=== PATIENT | female | born 1950 | race Caucasian/White ===

== ENCOUNTER 2020-06-24 14:42 | Outpatient (CLI) | payer MEDICARE, OTHER, SELFPAY ==
--- NOTE | ~2020-06-24 | MM_ITS ---
EXAMINATION: MM screening regla BI w man HISTORY: Screening mammogram TECHNIQUE: Craniocaudal and mediolateral oblique 3-D tomosynthesis images were obtained and synthetic 2-D images were generated. CAD analysis was submitted and interpreted. COMPARISON: 10/04/2017, 08/09/2015, 07/22/2012 bilateral digital screening mammogram examinations BREAST PARENCHYMAL COMPOSITION: There are scattered areas of fibroglandular density. FINDINGS: There is no evidence of suspicious mass, calcification, or architectural distortion to sugg est malignancy in either breast. There has been no suspicious interval change. IMPRESSION: 1. No mammographic evidence of malignancy. 2. Recommend routine screening mammography in one year. BI-RADS Category 1: Negative Reviewed, dictated and finalized at location A.
== END 2020-06-24 14:43 | disposition home or self-care (01) ==
LOC: ANHIMG 14:46
PROVIDERS: PCP Physician Assistant; Visit Provider Physician Assistant
DX: Z12.31 Encounter for screening mammogram for malignant neoplasm of breast (principal)
CPT/HCPCS: 77063; 77067

== ENCOUNTER → 2021-02-24 10:36 | Outpatient (CLI) | payer MEDICARE, OTHER, SELFPAY ==
[2021-02-24 19:11] LABS: SARS-CoV-2 RNA PCR Positive
== END ==
PROVIDERS: PCP Physician Assistant; Visit Provider Physician Assistant
DX: U07.1 COVID-19 (principal)
CPT/HCPCS: C9803; U0003; U0005

== ENCOUNTER 2021-11-13 07:49 | Outpatient (CLI) | payer MEDICARE, OTHER, SELFPAY ==
--- NOTE | ~2021-11-13 | MM_ITS ---
EXAMINATION: MM screening regla BI w man HISTORY: Screening TECHNIQUE: Craniocaudal and mediolateral oblique 3-D tomosynthesis images were obtained and synthetic 2-D images were generated. CAD analysis was submitted and interpreted. COMPARISON: Comparison to multiple prior studies sequentially, with oldest reviewed study dated 08/08. BREAST PARENCHYMAL COMPOSITION: There are scattered areas of fibroglandular density. FINDINGS: There is no evidence of suspicious mass, calcification, or architectural distortion to sugg est malignancy in either breast. There has been no suspicious interval change. IMPRESSION: 1. No mammographic evidence of malignancy. 2. Recommend routine screening mammography in one year. BI-RADS Category 1: Negative Reviewed, dictated and finalized at location A.
== END 2021-11-13 07:50 | disposition home or self-care (01) ==
PROVIDERS: PCP Physician Assistant; Visit Provider Physician Assistant
DX: Z12.31 Encounter for screening mammogram for malignant neoplasm of breast (principal)
CPT/HCPCS: 77063; 77067

== ENCOUNTER → 2022-01-07 14:22 | Outpatient (CLI) | payer MEDICARE, OTHER, SELFPAY ==
--- NOTE | ~2022-01-07 | DEXA_ITS ---
Bone Density Report Name: YENNY GRANT Age: 71 Sex: Female Ethnicity: White Date of : 1950 Indication: postmenopausal; screening for osteoporosis; height loss; Referring Provider: CANDIDO, CHELO Study: Bone densitometry was performed. Exam Date: January 07, 2022 Accession number: [id number] Bone Density: Region BMD T-score Z-score Classification AP Spine (L1, L3, L4) 1.119 0.6 2.7 Normal Femoral Neck (Left) 0.949 0.9 2.7 Normal Total Hip (Left) 1.251 2.5 4.0 Normal Femoral Neck (Right) 0.985 1.2 3.0 Normal Total Hip (Right) 1.211 2.2 3.7 Normal Total Hip Mean 1.231 2.4 3.9 Normal World Health Organization criteria for BMD impression classify patients as: Normal (T-score at or above -1.0), Osteopenia (T-score between -1.0 and -2.5), or Osteoporosis (T-score at or below -2.5). 10-year Fracture Risk: FRAX not reported because: All T-scores for Spine Total, Hip Total, Femoral Neck at or above -1.0 Previous Exams: Region Exam Age BMD T-score BMD Change BMD Change Date g/cm2 vs Baseline vs Previous AP Spine(L1, L3, L4) 01/07/2022 71 1.119 0.6 0.003 0.003 05/12/2016 65 1.116 0.6 Total Hip(Left) 01/07/2022 71 1.251 2.5 -0.032* -0.032* 05/12/2016 65 1.283 2.8 Total Hip(Right) 01/07/2022 71 1.211 2.2 -0.034* -0.034* 05/12/2016 65 1.245 2.5 *Denotes significance at 95% confidence level, LSC for AP Spine = 0.022 g/cm2, LSC for Total Hip = 0.027 g/cm2 Clinical Information Provided by Patient: Has used the following medications: Vitamin D, MULT VIT Patient maximum height was 67 Menopause Age: 59 No regular weight bearing exercise Drinks caffeinated beverages Onset of menses at age 15 Number of children 2 Impression: The patient has normal bone mass. The BMD for the Total Hip(Left) decreased, changing by -0.032 since the last DXA exam. The BMD for the Total Hip(Right) decreased, changing by -0.034 since the last DXA exam. Discussion: LOW RISK OF FRACTURE; BONE DENSITY IS WELL ABOVE THE MINIMUM DESIRABLE LEVEL AND ABOVE AVERAGE FOR AGE AND SEX AT ALL SKELETAL SITES TESTED. This person's bone density is above expected limits for age and sex. This is rarely clinically significant, but should be pursued if there are significant musculoskeletal complaints. The patient should follow a healthful lifestyle (good nutrition with adequate calcium and vitamin D, and appropriat
== END ==
PROVIDERS: PCP Physician Assistant; Visit Provider Physician Assistant
DX: Z78.0 Asymptomatic menopausal state (principal)
CPT/HCPCS: 77080

== ENCOUNTER 2022-06-06 14:30 | Emergency (ER) | payer OTHER, SELFPAY ==
--- NOTE | ~2022-06-06 | XR_ITS ---
EXAM: XR ankle RT min 3V, XR ankle LT min 3V DATE: 06/06/2022 17:14 HISTORY: fall; fell off curb today;pain ant bilat knees, bilat ankles . COMPARISON: None available. FINDINGS: Normal mineralization. No fracture or dislocation. No lytic or blastic lesion. Mild scatte red degenerative change. Mild left and moderate right plantar enthesopathy. Minimal bilateral Pray s enthesopathy. No erosion or periosteal change. Soft tissues within normal limits. IMPRESSION: No acute osseous finding in the bilateral ankles. Reviewed, dictated and finalized at location K. IMPRESSION: No acute osseous finding in the bilateral ankles.
--- NOTE | ~2022-06-06 | XR_ITS ---
EXAM: XR knee RT 3V, XR knee LT 3V DATE: 06/06/2022 17:15 HISTORY: fall; fell off curb today;pain ant bilat knees, bilat ankles . COMPARISON: None available. FINDINGS: Normal mineralization. No fracture or dislocation. No lytic or blastic lesion. Mild bilate ral knee osteoarthritis. Degenerative subchondral cysts in the right patella. Right quadriceps enthes opathy. Left patellar enthesopathy. No erosion or periosteal change. Soft tissues within normal limit s. IMPRESSION: No acute osseous finding in the bilateral knees. Reviewed, dictated and finalized at location K. IMPRESSION: No acute osseous finding in the bilateral knees.
[2022-06-06 14:33] VITALS: BP 168/68; PULSE 69; RESP 16; TEMP 36.6; O2SAT 100
--- NOTE | 2022-06-06 16:31 | ED.FALL ---
HPI - Fall General Chief Complaint: Fall Stated Complaint: fall- B knee, L ankle, B hand pain Time Seen by Provider: 06/06/22 15:58 History of Present Illness HPI Narrative: Patient is a 71-year-old female presenting after a fall. Patient states that she was at [employer] when she tripped on a pile of dried mud and dirt. She fell to her hands and knees. States that she landed very hard on her knees. States that she has bilateral knee pain, worse on the right. States that she did not try to bear weight after falling. She also complains of bilateral ankle pain. States that she had some pain in her palms but this has improved. She did not strike her head or lose consciousness. No neck or back pain. Denies further injuries or complaints. Related Data Allergies Allergy/AdvReac Type Severity Reaction Status Date / Time No Known Allergies Allergy Verified 06/06/22 16:39 Review of Systems Review of Systems: All systems reviewed & are unremarkable except as noted in HPI and below PMFSH Family History Family History Other Diabetes mellitus Family history of cardiovascular disease Family history of congestive heart failure Family history of glaucoma Family history of malignant neoplasm of breast Family history of obesity Social History Social History Smoking status: Never smoker Alcohol intake: current Exam Narrative: GENERAL: Well-appearing, well-nourished, and in no acute distress. HEAD: Normocephalic, atraumatic. EYES: PERRLA and EOMI. ENT: Nares clear, no rhinorrhea or epistaxis. Mucous membranes moist. NECK: Supple. CHEST: No respiratory distress. HEART: Regular rate and rhythm. Normal peripheral pulses. ABDOMEN: Soft, nontender, nondistended EXTREMITIES: Normal range of motion of bilateral ankles and knees, tenderness over anterior right knee SKIN: Warm, dry, abrasion over right knee, ecchymosis distal right calf NEURO: No focal deficits. Alert and oriented x3. PSYCH: Normal mood and affect. Course Vital Signs Vital signs: Vital Signs Temperature 97.9 F 06/06/22 14:33 Pulse Rate 69 06/06/22 14:33 Respiratory Rate 16 06/06/22 14:33 Blood Pressure 168/68 H 06/06/22 14:33 Pulse Oximetry 100 06/06/22 14:33 Oxygen Delivery Room Air 06/06/22 14:33 Temperature 97.9 F 06/06/22 14:33 Pulse Rate 65 06/06/22 19:17 Respiratory Rate 16 06/06/22 19:17 Blood Pressure 159/82 H 06/06/22 19:17 Pulse Oximetry 100 06/06/22 19:17 Oxygen Delivery Room Air 06/06/22 14:33 MDM - Fall MDM Narrative Medical decision making narrative: 71-year-old female presenting with bilateral knee and ankle pain following a mechanical fall. Vitals within normal limits. Exam remarkable for the above. Plan for plain films and oral Tylenol. X-rays show no acute osseous abnormalities. Discussed the reassuring work-up with the patient. Advised Tylenol and ice for pain control. Advised PCP follow-up. Appropriate return precautions given. Patient voiced understanding and is agreeable with plan. Discharged in stable condition. Differential Diagnosis Differential diagnosis: Likely other (ankle fracture, knee dislocation, tibial fracture, femur fracture, abrasions, fall) Critical Care Time Critical Care Time Critical Care Time: No Discharge Plan Discharge Clinical Impression: Fall, Abrasion Patient Disposition: Home, Self-Care Condition: Stable Instructions: Antibiotic Form, Fall Prevention for Older Adults (ED), Abrasion (ED) Additional Instructions: Your x-rays show no fractures. Please use Tylenol and ibuprofen for pain control. Please follow-up with your primary care provider. If your pain suddenly worsens, you develop fevers, numbness or weakness, or other concerning symptoms arise, please return to the ER. Follow-up/Referrals: Jane,SYLVAIN Escobedo-
[2022-06-06] MEDS: ACETAMINOPHEN 500 MG TABLET 1000 MG PO (16:39)
[2022-06-06] MEDS: Please add drug allergy info to patient profile. XX (16:40)
[2022-06-06 19:17] VITALS: BP 159/82; PULSE 65; RESP 16; O2SAT 100
== END 2022-06-06 19:19 | disposition home or self-care (01) ==
PROVIDERS: Emergency Provider Emergency Medicine; PCP Physician Assistant
DX: S80.211A Abrasion, right knee, initial encounter (principal); M25.562 Pain in left knee; M25.572 Pain in left ankle and joints of left foot; M25.571 Pain in right ankle and joints of right foot; W01.0XXA Fall on same level from slipping, tripping and stumbling without subsequent striking against object, initial encounter
CPT/HCPCS: 73562; 73610; 99284; A9270

== ENCOUNTER → 2022-06-10 12:03 | Outpatient (CLI) | payer MEDICARE, OTHER, SELFPAY ==
--- NOTE | ~2022-06-10 | XR_ITS ---
XR tibia fibula RT 2V DATE: 06/10/2022 12:21 INDICATION: Fall 4 days ago. Anterior distal lower leg pain TECHNIQUE: AP and lateral views COMPARISON: None FINDINGS: No fracture or dislocation, periosteal reaction or bone destruction. Normal alignment at th e knee and ankle joints. IMPRESSION: No fracture or dislocation Reviewed, dictated and finalized at location B. IMPRESSION: No fracture or dislocation
--- NOTE | ~2022-06-10 | XR_ITS ---
XR shoulder RT min 2V DATE: 06/10/2022 12:21 INDICATION: Fall 4 days ago. Right shoulder pain. TECHNIQUE: 4 views COMPARISON: None FINDINGS: No fracture or dislocation, periosteal reaction or bone destruction or abnormal soft tissue calcification. IMPRESSION: Negative Reviewed, dictated and finalized at location B. IMPRESSION: Negative
== END ==
PROVIDERS: PCP Physician Assistant; Visit Provider Physician Assistant
DX: M79.604 Pain in right leg (principal); M25.511 Pain in right shoulder
CPT/HCPCS: 73030; 73590

== ENCOUNTER 2022-06-15 11:15 | Outpatient (CLI) | payer MEDICARE, OTHER, SELFPAY ==
--- NOTE | ~2022-06-15 | US_ITS ---
US venous doppler LE RT DATE: 06/15/2022 11:46 INDICATION: Swelling of right lower extremity TECHNIQUE: Real-time and color flow imaging and Doppler analysis of the veins of the right lower extr emity COMPARISON: None FINDINGS: The right greater saphenous vein is patent. There is spontaneous and phasic flow and normal augmentation and color flow signal and normal compression of the deep veins of the right lower extre mity. Probable hematoma in the anterior lower leg IMPRESSION: No evidence of deep venous thrombosis of right lower extremity Reviewed, dictated and finalized at Location A. Reviewed, dictated and finalized at location B.
== END 2022-06-15 11:16 | disposition home or self-care (01) ==
LOC: ANHIMG 11:17
PROVIDERS: PCP Physician Assistant; Visit Provider Physician Assistant
DX: R22.41 Localized swelling, mass and lump, right lower limb (principal)
CPT/HCPCS: 93971

== ENCOUNTER 2023-10-27 15:49 | Outpatient (CLI) | payer MEDICARE, OTHER, SELFPAY ==
--- NOTE | ~2023-10-27 | MM_ITS ---
EXAMINATION: MM screening regla BI w man HISTORY: Screening TECHNIQUE: Craniocaudal and mediolateral oblique 3-D tomosynthesis images were obtained and synthetic 2-D images were generated. CAD analysis was submitted and interpreted. COMPARISON: Comparison to multiple prior studies sequentially, with oldest reviewed study dated 08/08. BREAST PARENCHYMAL COMPOSITION: Not dense: There are scattered areas of fibroglandular density. FINDINGS: There is no evidence of suspicious mass, calcification, or architectural distortion to sugg est malignancy in either breast. There has been no suspicious interval change. IMPRESSION: 1. No mammographic evidence of malignancy. 2. Recommend routine screening mammography in one year. BI-RADS Category 1: Negative Reviewed, dictated and finalized at location B.
== END 2023-10-27 15:50 | disposition home or self-care (01) ==
PROVIDERS: PCP Physician Assistant; Visit Provider Physician Assistant
DX: Z12.31 Encounter for screening mammogram for malignant neoplasm of breast (principal)
CPT/HCPCS: 77063; 77067

== ENCOUNTER 2024-06-22 11:21 | Outpatient (CLI) | payer MEDICARE, OTHER, SELFPAY ==
--- NOTE | ~2024-06-22 | CT_ITS ---
Non-contrast CT scan of the Abdomen Clinical indication: Disorder adrenal gland Technique: 2.5 mm axial scans were obtained through the abdomen without intravenous or oral contrast . Dose reduction technique was used on this scan by utilizing automated exposure control and iterativ e reconstruction technique. The dose-length product (DLP) was 684.56 mGy-cm. Findings: Images through the lung bases reveal small hiatal hernia. There is no evidence of renal or ureteral calculi. The kidneys and the ureters are nondilated. Parape lvic left renal cysts are present. The liver, spleen, pancreas, gallbladder, and right adrenal gland appear normal. 1.7 cm low-density l eft adrenal nodule is compatible with adenoma. There is no aortic aneurysm. Visualized bowel loops are unremarkable.. No ascites. Bilateral L5 pars interarticularis defects are noted. Impression: 1.7 cm left adrenal adenoma. Small hiatal hernia. Reviewed, dictated and finalized at [facility]. Impression: 1.7 cm left adrenal adenoma. Small hiatal hernia.
== END 2024-06-22 11:22 | disposition home or self-care (01) ==
LOC: MICIMG 11:22
PROVIDERS: PCP Physician Assistant; Visit Provider Internal Medicine Endocrinology, Diabetes & Metabolism
DX: D35.02 Benign neoplasm of left adrenal gland (principal); K44.9 Diaphragmatic hernia without obstruction or gangrene
CPT/HCPCS: 74150

== ENCOUNTER 2024-09-05 11:03 | Outpatient (CLI) | payer MEDICARE, OTHER, SELFPAY ==
--- NOTE | ~2024-09-05 | DEXA_ITS ---
Bone Density Report Name: YENNY GRANT Age: 73 Sex: Female Ethnicity: White Date of : 1950 Indication: postmenopausal; screening for osteoporosis; height loss; Referring Provider: CANDIDO, CHELO Study: Bone densitometry was performed. Exam Date: September 05, 2024 Accession number: [id number] Bone Density: Region BMD T-score Z-score Classification AP Spine(L1, L3, L4) 1.088 0.3 2.6 Normal Femoral Neck (Left) 0.906 0.5 2.4 Normal Total Hip (Left) 1.166 1.8 3.4 Normal Femoral Neck (Right) 0.911 0.6 2.5 Normal Total Hip (Right) 1.180 1.9 3.6 Normal Total Hip Mean 1.173 1.9 3.5 Normal World Health Organization criteria for BMD impression classify patients as: Normal (T-score at or above -1.0), Osteopenia (T-score between -1.0 and -2.5), or Osteoporosis (T-score at or below -2.5). 10-year Fracture Risk: FRAX not reported because: All T-scores for Spine Total, Hip Total, Femoral Neck at or above -1.0 Previous Exams: -- Region Exam Age BMD T-score BMD Change BMD Change Date g/cm2 vs Baseline vs Previous -- AP Spine (L1,L3-L4) 09/05/2024 73 1.088 0.3 -2.5%# -2.8%# 01/07/2022 71 1.119 0.6 0.3% 0.3% 05/12/2016 65 1.116 0.6 Total Hip(Left) 09/05/2024 73 1.166 1.8 -9.1%# -6.8%# 01/07/2022 71 1.251 2.5 -2.5%* -2.5%* 05/12/2016 65 1.283 2.8 Total Hip(Right) 09/05/2024 73 1.180 1.9 -5.3%# -2.6%# 01/07/2022 71 1.211 2.2 -2.8%* -2.8%* 05/12/2016 65 1.245 2.5 -- *Denotes significance at 95% confidence level, LSC for AP Spine = 0.022 g/cm2, LSC for Total Hip = 0.027 g/cm2 # Denotes dissimilar scan types or analysis methods Clinical Information Provided by Patient: Has used the following medications: Vitamin D, Calcium Patient maximum height was 67 Menopause Age: 59 No regular weight bearing exercise Drinks caffeinated beverages Onset of menses at age 14 Number of children 2 Impression: The patient has normal bone mass. Unable to evaluate interval change due to the use of different scan modes. Discussion: LOW RISK OF FRACTURE; BONE DENSITY IS WELL ABOVE THE MINIMUM DESIRABLE LEVEL AND ABOVE AVERAGE FOR AGE AND SEX AT ALL SKELETAL SITES TESTED. This person's bone density is above expected limits for age and sex. This is rarely clinically significant, but should be pursued if there are significant musculoskeletal complaints. The patient should follow a healthful lifestyle (good nutrition with adequate calcium and vitamin D, and appropriate weight-bearing exercise). Follow-Up: Consider repeating this study in 5 years or sooner if there is some new clinical indication. Reported by: TERI on 09/05/2024 11:30:00 AM. Reviewed, dictated and finalized at location A.
== END 2024-09-05 11:04 | disposition home or self-care (01) ==
LOC: MICIMG 11:05
PROVIDERS: PCP Physician Assistant; Visit Provider Physician Assistant
DX: Z13.820 Encounter for screening for osteoporosis (principal); Z78.0 Asymptomatic menopausal state
CPT/HCPCS: 77080

== ENCOUNTER 2025-01-24 13:04 | Outpatient (CLI) | payer MEDICARE, OTHER, SELFPAY ==
--- OUTSIDE RECORDS SUMMARY | 2024-02-05 15:00 | XMS_ITS ---
Author Organization [facility] Address [address] [place] [address] Care Team Providers Care Mink Rancher Name Role Phone Ericka Levi Unavailable [phone] Migration, Provider Unavailable Unavailable Allergies Allergen (clinical drug ingredient) Drug/Non Drug Allergy documented on EMR Reaction Allergy Type Onset Date Status metformin metFORMIN Unknown Drug Allergy Active REASON FOR VISIT [facility] Conversion Encounter Medications Medication SIG (Take, Route, Frequency, Duration) Notes Start Date End Date Status dexAMETHasone 1 MG 1 tab(s) orally at 1 0 pm night before 8 am cortisol; Duration: 1 days 12/13/2023 Active Zepbound 5 MG/0.5ML inject 5 mg subcutaneously once a week; Duration: 12/13/2023 Active Zepbound 2.5 MG/0.5ML inject 2.5 mg subcutaneously once a week; Duration: 30 days 12/13/2023 Active Liothyronine Sodium 5 MCG 1 tab(s) orally once a day around noon; Duration: days 12/13/2023 Active Losartan Potassium 25 MG 1 tab(s) orally once a day; Duration: 90 days 11/01/2023 Not-Janes g Losartan Potassium 25 MG 1 tab(s) orally once a day Active Liothyronine Sodium 5 MCG 1 tab(s) orally once a day around noon; Duration: 30 12/14/2023 Active Mounjaro 2.5 MG/0.5ML inject 2.5 mg subcutaneously once a week; Duration: days 11/01/2023 Active Levothyroxine Sodium 75 MCG 1 tab(s) orally once a day Active Lexapro 10 MG 1 tab(s) orally once a day Active Encounters Encounter Location Date Provider Diagnosis [facility] [place] [address] [place] [phone] 02/05/2024 Provider Migration Hypothyroidism, unspecified E03.9 and Obesity, unspecified E66.9 Assessments Encounter Date Diagnosis (ICD Code) Assessment Notes Treatment Notes Treatment Clinical Notes Section Notes 02/05/2024 Hypothyroidism, unspecified (ICD-10 - E03.9) 02/05/2024 Obesity, unspecified (ICD-10 - E66.9) Plan Of Treatment Medication Medication Name Sig Start Date Stop Date Notes dexAMETHasone 1 MG 1 tab(s) orally at 1 0 pm night before 8 am cortisol; Duration: 1 days 12/13/2023 Zepbound 5 MG/0.5ML inject 5 mg subcutan eously once a week; Duration: 90 days 12/13/2023 Zepbound 2.5 MG/0.5ML inject 2.5 mg subc utaneously once a week; Duration: 30 days 12/13/2023 Liothyronine Sodium 5 MCG 1 tab(s) orall y once a day around noon; Duration: 90 days 12/13/2023 Liothyronine Sodium 5 MCG 1 tab(s) orall y once a day around noon; Duration: 30 days 12/14/2023 Progress Notes * Pino GRANTOB:1950 (74 yo F)Acc No.[id number]:02/05/2024 Patient: Michell CARDENAS Provider: Osmin ibarra Migration :1950 A ge:73 Y S ex:Female Date:02/05/2024 Address:[address] [place] [address] Subjective: * Chief Complaints: * 1 . Multum To Medispan Conversion Encounter. * Medical History: * Medications: T aking Losartan Potassium 25 MG Tablet 1 tab(s) orally once a day , Taking Lexapro(Escitalopram Oxalate) 10 MG Tablet 1 tab(s) orally once a day , Taking Levothyroxine Sodium 75 MCG Tablet 1 tab(s) orally once a day , Taking Mounjaro(Tirzepatide) 2.5 MG/0.5ML Solution Auto-injector inject 2.5 mg subcutaneously once a week , Not-Taking/PRN Losartan Potassium 25 MG Tablet 1 tab(s) orally once a day * Allergies: m etFORMIN. Objective: * Vitals: Assessment: * Assessment: 1. H ypothyroidism, unspecified - E03.9 (Primary) 2 . O besity, unspecified - E66.9 Plan: * Treatment: 2. O besity, unspecified Start Zepbound Solution, 2.5 MG/0.5ML, inject 2.5 mg, subcutaneously, once a week, 30 days, 4, Refills 0; S tart Zepbound Solution, 5 MG/0.5ML, inject 5 mg, subcutaneously, once a week, 90 days, 12, Refills 1; S tart dexAMETHasone Tablet, 1 MG, 1 tab(s), orally, at 10 pm night before 8 am cortisol, 1 days, 1, Refills 1. * Billing Information: * Visit Code: * Procedure Codes: * Electronic signature of Prov saundrar Migration on 01/25/2025 at 11:39 AM WALLPAPER HANGER Sign off status: Pending * Provider: Osmin ibarra Migration Date: 04/06/2023 Generated for Landon nieves/Rashida/Angelitting on: 03/27/2024 11:39 AM WALLPAPER HANGER
--- OUTSIDE RECORDS SUMMARY | 2024-02-05 15:00 | XMS_ITS ---
Author Organization [facility] Address [address] [place], [place] [address] Care Team Providers Care Script Developer Name Role Phone Ericka Levi Unavailable [phone] Migration, Provider Unavailable Unavailable Allergies Allergen (clinical drug ingredient) Drug/Non Drug Allergy documented on EMR Reaction Allergy Type Onset Date Status metformin metFORMIN Unknown Drug Allergy [facility] Conversion Encounter Medications Medication SIG (Take, Route, Frequency, Duration) Notes Start Date End Date Status Mounjaro 2.5 MG/0.5ML Solution Auto-injector inject 2.5 mg subcutaneously once a week; Duration: 90 days 11/01/2023 Active Levothyroxine Sodium 75 MCG Tablet 1 tab(s) orally once a day Active Losartan Potassium 25 MG Tablet 1 tab(s) orally once a day; Duration: 90 days 11/01/2023 Not-Janes g Lexapro 10 MG Tablet 1 tab(s) orally onc e a day Active Losartan Potassium 25 MG Tablet 1 tab(s) orally once a day Active Zepbound 5 MG/0.5ML Solution inject 5 mg subcutaneously once a week; Duration: 90 days 12/13/2023 Active Zepbound 2.5 MG/0.5ML Solution inject 2.5 mg subcutaneously once a week; Duration: 30 days 12/13/2023 Active Liothyronine Sodium 5 MCG Tablet 1 tab(s) orally once a day around noon; Duration: 30 days 12/14/2023 Active dexAMETHasone 1 MG Tablet 1 tab(s) orally at 10 pm night before 8 am cortisol; Duration: 1 days 12/13/2023 Active Liothyronine Sodium 5 MCG Tablet 1 tab(s) orally once a day around noon; Duration: 90 days 12/13/2023 Active Encounters Encounter Location Date Provider Diagnosis [address] [id number] 02/05/2024 Provider Migration Hypothyroidism, unspecified E03.9 and Obesity, unspecified E66.9 Assessments Encounter Date Diagnosis (ICD Code) Assessment Notes Treatment Notes Treatment Clinical Notes Section Notes 02/05/2024 Hypothyroidism, unspecified (ICD-10 - E03.9) 02/05/2024 Obesity, unspecified (ICD-10 - E66.9) Plan Of Treatment Medication Medication Name Sig Start Date Stop Date Notes Zepbound 5 MG/0.5ML Solution inject 5 mg subcutaneously once a week; Duration: 90 days 12/13/2023 Zepbound 2.5 MG/0.5ML Solution inject 2.5 mg subcutaneously once a week; Duration: 30 days 12/13/2023 Liothyronine Sodium 5 MCG Tablet 1 tab(s) orally once a day around noon; Duration: 30 days 12/14/2023 dexAMETHasone 1 MG Tablet 1 tab(s) orall y at 10 pm night before 8 am cortisol; Duration: 1 days 12/13/2023 Liothyronine Sodium 5 MCG Tablet 1 tab(s) orally once a day around noon; Duration: 90 days 12/13/2023 Next Appt Details Provider Name:Ericka Levi, 01:00:00 PM, [address] [place] [address], [phone], Progress Notes * Pino GRANTOB:1950 (74 yo F)Acc No.[id number]:02/05/2024 Patient: Michell Monge Provider: Osmin Velez :1950 A ge:73 Y S ex:Female Date:02/05/2024 Address:[address] [place] [id number] Subjective: * Chief Complaints: * M ultum To Medispan Conversion Encounter * Medications: T akingLosartan Potassium 25 MG Tablet 1 tab(s) orally once a day Lexapro 10 MG Tablet 1 tab(s) orally once a day Levothyroxine Sodium 75 MCG Tablet 1 tab(s) orally once a day Mounjaro 2.5 MG/0.5ML Solution Auto-injector inject 2.5 mg subcutaneously once a week Taking Losartan Potassium 25 MG Tablet 1 tab(s) orally once a day Taking Lexapro 10 MG Tablet 1 tab(s) orally once a day Taking Levothyroxine Sodium 75 MCG Tablet 1 tab(s) orally once a day Taking Mounjaro 2.5 MG/0.5ML Solution Auto-injector inject 2.5 mg subcutaneously once a week Not-TakingLosartan Potassium 25 MG Tablet 1 tab(s) orally once a day Not-Taking Losartan Potassium 25 MG Tablet 1 tab(s) orally once a day * Allergies: m etFORMIN Assessment: * Assessment: 1. H ypothyroidism, unspecified [...] cortisol, 1 days, 1, Refills 1. * Electronic signature of Prov ider Migration on 01/25/2025 at 11:38 AM FIELD TRAINING MANAGER Sign off status: Pending * Provider: Osmin ibarra Migration Date: 04/06/2023 Generated for Landon nieves/Rashida/Angelitting on: 03/27/2024 11:38 AM FIELD TRAINING MANAGER
--- OUTSIDE RECORDS SUMMARY | 2024-04-24 04:30 | XMS_ITS ---
Author Organization [facility] Address [address] [place], [place] [address] Care Team Providers Care Framing Mechanic Name Role Phone Ericka Levi [phone] REASON FOR VISIT 6 week f/u carisa Encounters Encounter Location Date Provider Diagnosis [facility] Dr. Levi [address] [place] [id number] 04/24/2024 Ericka Levi Plan Of Treatment Next Appt Details Provider Name:Ericka Levi, 01:00:00 PM, [address] [place] [address], [phone], Progress Notes * Pino GRANTOB:1950 (74 yo F)Acc No.[id number]:04/24/2024 Progress Notes Patient: Michell Monge Provider: Henry Levi MD :1950 A ge:73 Y S ex:Female Date:04/24/2024 Address:[address], [facility] Subjective: * Chief Complaints: * 6 week f/u carisa * Electronic signature of Sha Levi MD on 01/25/2025 at 11:39 AM MANAGER PORTABLE Sign off status: Pending * Provider: Henry Levi MD Date: 0 04/24/2024 Generated for Parasi ng/Faxing/eTransmitting on: 1 03/27/2024 11:39 AM MANAGER PORTABLE
--- OUTSIDE RECORDS SUMMARY | 2024-06-05 05:00 | XMS_ITS ---
Author Organization [employer] [facility] Address [address] [place] [address] Care Team Providers Care Carpet Renovator Name Role Phone Ericka Levi [phone] REASON FOR VISIT F/U RAUL Encounters Encounter Location Date Provider Diagnosis [facility] - Ericka Levi [address] [place] [address] 06/05/2024 Ericka Levi Plan Of Treatment No Information Progress Notes * Pino GRANTOB:1950 (74 yo F)Acc No.[id number]:06/05/2024 Progress Notes Patient: Michell CARDENAS Provider: Henry Levi MD :1950 A ge:73 Y S ex:Female Date:06/05/2024 Address:[address] [facility] Subjective: * Chief Complaints: * 1 . F/U RAUL. * Medical History: Objective: * Vitals: Assessment: Plan: * Treatment: * Billing Information: * Visit Code: * Procedure Codes: * Electronic signature of Sha Levi MD on 01/25/2025 at 11:38 AM PAYROLL CLERK Sign off status: Pending * Provider: Henry Levi MD Date: 0 06/05/2024 Generated for Parasi ng/Falaurag/eTransmitting on: 03/27/2024 11:38 AM PAYROLL CLERK
--- OUTSIDE RECORDS SUMMARY | 2024-06-05 05:00 | XMS_ITS ---
Author Organization [employer] [facility] Address [address] [place] [address] Care Team Providers Care Transportation Program Director Name Role Phone Ericka Levi [phone] REASON FOR VISIT F/U RAUL Encounters Encounter Location Date Provider Diagnosis [facility] - Ericka Levi [address] [place] [address] 06/05/2024 Ericka Levi Plan Of Treatment No Information Progress Notes * Pino GRANTOB:1950 (74 yo F)Acc No.[id number]:06/05/2024 Progress Notes Patient: Michell CARDENAS Provider: Henry Levi MD :1950 A ge:73 Y S ex:Female Date:06/05/2024 Address:[address] [facility] Subjective: * Chief Complaints: * 1 . F/U RAUL. * Medical History: Objective: * Vitals: Assessment: Plan: * Treatment: * Billing Information: * Visit Code: * Procedure Codes: * Electronic signature of Sha Levi MD on 01/25/2025 at 11:39 AM CREDIT REPORTING CLERK Sign off status: Pending * Provider: Henry Levi MD Date: 0 06/05/2024 Generated for Parasi ng/Falaurag/eTransmitting on: 03/27/2024 11:39 AM CREDIT REPORTING CLERK
--- OUTSIDE RECORDS SUMMARY | 2024-08-28 07:00 | XMS_ITS ---
Author Organization [facility] Address [address] [place], [place] [address] Care Team Providers Care Carpenter Maintenance Name Role Phone Ericka Levi [phone] REASON FOR VISIT 3 month f/u Encounters Encounter Location Date Provider Diagnosis AMMO Dr. Levi [address] [place] [phone] 08/28/2024 Ericka Levi Plan Of Treatment Next Appt Details Provider Name:Ericka Levi, 01:00:00 PM, [address] [place] [address], [phone], Progress Notes * Pino GRANTOB:1950 (74 yo F)Acc No.[id number]:08/28/2024 Progress Notes Patient: Michell Monge Provider: Henry Levi MD :1950 A ge:73 Y S ex:Female Date:08/28/2024 Address:[address], [facility] Subjective: * Chief Complaints: * 3 month f/u * Electronic signature of Sha Levi MD on 01/25/2025 at 11:38 AM INTERIOR DECORATOR PAPERHANGING Sign off status: Pending * Provider: Henry Levi MD Date: 08/28/2024 Generated for Parasi ng/Falaurag/eTransmitting on: 03/27/2024 11:38 AM INTERIOR DECORATOR PAPERHANGING
--- OUTSIDE RECORDS SUMMARY | 2025-01-10 06:20 | XMS_ITS ---
Author Organization [facility] Address [address] [place], [place] [address] Care Team Providers Care Field Crop Technical Officer Name Role Phone Ericka Levi [phone] REASON FOR VISIT Lab Follow up Encounters Encounter Location Date Provider Diagnosis AMMO Dr. Levi [address] [place] [phone] 01/10/2025 Ericka Levi Plan Of Treatment Next Appt Details Provider Name:Ericka Levi, 01:00:00 PM, [address] [place] [address], [phone], Progress Notes * Pino GRANTOB:1950 (74 yo F)Acc No.[id number]:01/10/2025 Progress Notes Patient: Michell Monge Provider: Henry Levi MD :1950 A ge:74 Y S ex:Female Date:01/10/2025 Address:[address], [facility] Subjective: * Chief Complaints: * L ab Follow up * Electronic signature of Sha Levi MD on 01/25/2025 at 11:39 AM HOME SERVICE TECHNICIAN Sign off status: Pending * Provider: Henry Levi MD Date: Generated for Landon ng/Fanaman/eTransmitting on: 03/27/2024 11:39 AM HOME SERVICE TECHNICIAN
--- NOTE | ~2025-01-24 | MM_ITS ---
EXAMINATION: MM screening regla BI w man HISTORY: Screening TECHNIQUE: Craniocaudal and mediolateral oblique 3-D tomosynthesis images were obtained and synthetic 2-D images were generated. CAD analysis was submitted and interpreted. COMPARISON: Comparison to multiple prior studies sequentially, with oldest reviewed study dated , 08/09/2015 BREAST PARENCHYMAL COMPOSITION: The breasts are almost entirely fatty. FINDINGS: There is no evidence of suspicious mass, calcification, or architectural distortion to suggest malignancy in either breast. IMPRESSION: 1. No mammographic evidence of malignancy. 2. Recommend routine screening mammography in one year. BI-RADS Category 1: Negative Reviewed, dictated and finalized at location A. AND EYE MACHINE OPERATOR
--- OUTSIDE RECORDS SUMMARY | 2025-01-25 11:39 | XMS_ITS | Encounter Summary ---
Author Organization [facility] Address [address] [place] [address] Care Team Providers Care Grazing Aide Name Role Phone Fanny Lara Primary Care Pr ovider Encounter Details Date Type Department Care Team (Late st Contact Info) Description 07/05/2023 Orders Only [facility] Senior Counseling [address] [place] [address] Kai Vogel MD [address] [address] Social History Tobacco Use Types Packs/Day Years Used Date Smoking Tobacco: Never Smokeless Tobacco: Never Alcohol Use Standard Drinks/Week Comments Yes 0 (1 standard drink = 0.6 oz pur e alcohol) Comments No Sex and Gender Information Value Date Recorded Sex Assigned at Not on file Legal Sex Female 11:10 AM FOREST FIRE PREVENTION SPECIALIST Gender Identity Female 07/20/2023 6:38 PM CDT Sexual Orientation Straight 07/26/2018 9: 47 AM CDT documented as of this encounter Plan of Treatment Not on file documented as of this encounter Visit Diagnoses Not on filedocumented in this encounter Additional Health Concerns Active Problems Noted Date Diagnosed Date 1. Family/Interpersonal Relationship Problems: 1 04/24/2023 Note: Problem Statement: Patient presents with anxiety symptoms and reports of relational conflict with family. For the last several years patient has been struggling to maintain relationship with her sister who has chronic severe mental and physical illness. Patient reports this relationship as a major stressor as her sister has no desire for mental health treatment and patient experiences frequent worry about her wellbeing. Patient also reports worrying that something similar will happen to her. Patient also reports worries about the wellbeing of her grandsons as their parents navigate a divorce, as well as worries about the possibility of conflict with her [id number], who have recently become more involved in her and her husbands' lives. Patients reports experience of anxiety symptoms frequently such as excessive worrying, feeling j ittery and restlessness. Patient reports depression symptoms of helplessness and loss of control. Patient has a difficult time shifting focus to self and tends to worry excessively about other people in her life and things that are out of her control. Due to symptoms of: __X_Depression _X__ Anxiety ___Psychosis ___Emotional Dysregulation ___Other: As evidenced by sx of Depression: helplessness, inactivity, and crying spells As evidenced by symptoms of Anxiety: irritability, excessive worries/fears, sleeping problems, eating problems, and restlessness Long-term Goal / Discharge Criteria: Patient will be able to utilize learned coping skills to better manage symptoms of generalized anxiety disorder to report improved ability to navigate family relationship problems which negatively impact her functional ability. Discharge will be assessed in 60 days (April 23, 2024). Justification for continued stay: Patient remains appropriate for treatment at this time to continue to work on coping skills to better manage generalized anxiety disorder. Patient will need to learn coping skills and maintain medication and treatment compliance to manage disorders and to improve overall function and response to life and relational stressors. Treatment Modalities: Group Therapy, Individual Therapy, Medical Supervision for Intervention. Treatment Order: 1x/week; [3 group sessions] Psychiatric Dx: F41.1 Generalized anxiety disorder Medications: none at this time per patient's preference, she stopped taking escitalopram on her own as she experienced emotional blunting. Prognosis: Patient prognosis is good as evidenced by expressed desire to seek out treatment and to improve anxiety symptoms through learning new coping skills to utilize. documented as of this encounter Care Teams Grazing Aide Relationship Specialty Start Date End Date Fanny Lara PA PCP - General Physician It Business Process Architect 10/20/17 documented as of this encounter
--- OUTSIDE RECORDS SUMMARY | 2025-01-25 11:39 | XMS_ITS | Encounter Summary ---
Author Organization [facility] Address [address] [place] [address] Phone Care Team Providers Care Paving Block Cutter Name Role Phone Fanny Lara Primary Care Pr ovider Encounter Details Date Type Department Care Team (Late st Contact Info) Description 02/13/[address] [facility] Endocrinology Metabolism and Lipid [address] [facility] [address] [place] [address] [place] [address] Mike Pemberton MD [address] [facility] [address] [place] [address] Social History Tobacco Use Types Packs/Day Years Used Date Smoking Tobacco: Never Smokeless Tobacco: Never Alcohol Use Standard Drinks/Week Comments Yes 0 (1 standard drink = 0.6 oz pur e alcohol) Comments No Sex and Gender Information Value Date Recorded Sex Assigned at Not on file Legal Sex Female 11:10 AM OIL FIELD ROUSTABOUT Gender Identity Female 07/20/2023 6:38 PM CDT Sexual Orientation Straight 07/26/2018 9: 47 AM CDT documented as of this encounter Plan of Treatment Not on file documented as of this encounter Visit Diagnoses Not on filedocumented in this encounter Care Teams Paving Block Cutter Relationship Specialty Start Date End Date Fanny Lara PA PCP - General Physician Glue Size Machine Operator 10/20/17 documented as of this encounter
--- OUTSIDE RECORDS SUMMARY | 2025-01-25 11:39 | XMS_ITS | Encounter Summary ---
Author Organization [facility] Address [address] [place] [address] Phone Care Team Providers Care Clinic Charge Nurse Name Role Phone Fanny Lara Primary Care Pr ovider Encounter Details Date Type Department Care Team (Latest Contact Info) Description 11/15/2019 Orders Only [facility] Scanning, Provider Social History Tobacco Use Types Packs/Day Years Used Date Smoking Tobacco: Never Smokeless Tobacco: Never Alcohol Use Standard Drinks/Week Comments Yes 0 (1 standard drink = 0.6 oz pur e alcohol) Comments No Sex and Gender Information Value Date Recorded Sex Assigned at Not on file Legal Sex Female 11:10 AM VAMPER Gender Identity Female 07/20/2023 6:38 PM CDT Sexual Orientation Straight 07/26/2018 9: 47 AM CDT documented as of this encounter Plan of Treatment Not on file documented as of this encounter Procedures Procedure Name Priority Date/Time Associated Diagnosis Comments SCAN - LABS 11/15/2019 documented in this encounter Results * SCAN - LABS (11/15/2019) us Provider Scanning Final Result documented in this encounter Visit Diagnoses Not on filedocumented in this encounter Care Teams Clinic Charge Nurse Relationship Specialty Start Date End Date Fanny Lara PA PCP - General Physician Elastic Attacher Chainstitch 10/20/17 documented as of this encounter
--- OUTSIDE RECORDS SUMMARY | 2025-01-25 11:39 | XMS_ITS | Clinical Summary ---
Author Organization [facility] Address [address], [address] [address] Phone Care Team Providers Care Customer Operations Associate Name Role Phone Kane Rodriguez MD Primary Care Provider + Allergies No known active allergies Medications lisinopril (PRINIVIL, ZESTRIL) 10 MG Tablet Take 10 mg by mouth 2 times daily. Active Family History Medical History Relation Name Comments Heart Attack Father Cancer Mother breast Relation Name Status Comments Father Mother Social History Tobacco Use Types Packs/Day Years Used Date Smoking Tobacco: Never Smokeless Tobacco: Never Alcohol Use Standard Drinks/Week Comments No 0 (1 standard drink = 0.6 oz pur e alcohol) Comments Unknown Sex and Gender Information Value Date Recorded Sex Assigned at Not on file Legal Sex Female 4:38 PM CDT Gender Identity Not on file Sexual Orientation Not on file Last Filed Vital Signs Vital Sign Reading Time Taken Comments Blood Pressure 130/81 02/09/2017 8:15 AM CALL CENTER REPRESENTATIVE Pulse 78 02/09/2017 7:03 AM CALL CENTER REPRESENTATIVE Temperature 36 C (96.8 F) 02/09/2017 8:15 AM CALL CENTER REPRESENTATIVE Respiratory Rate 16 02/09/2017 8:15 AM CALL CENTER REPRESENTATIVE Oxygen Saturation 97% 02/09/2017 8:15 AM CALL CENTER REPRESENTATIVE Inhaled Oxygen Concentration - - Weight 122.5 kg (270 lb) 02/02/2017 9:00 AM CALL CENTER REPRESENTATIVE Height 170.2 cm (5' 7) 02/02/2017 9:00 AM CALL CENTER REPRESENTATIVE Body Mass Index 42.29 02/02/2017 9:00 AM CALL CENTER REPRESENTATIVE Plan of Treatment Health Maintenance Due Date Last Done Comments Hepatitis C Virus (HCV) Screening 1950 TdaP Immunization 1950 Cologuard 1997 Immunochemical Fecal Occult Blood 1997 Pneumococcal Immunization (5 0+ years) (1 of 1 - PCV) 2002 Zoster Immunization (1 of 2) 2002 Colonoscopy 02/09/2022 02/09/2017 Colorectal Cancer Screening 02/09/2022 Influenza Immunization (#1) 2024 SARS-COV-2 Immunization ( season) 2024 Respiratory Syncytial Virus (RSV) Immunization (Adult) (1 - 1-dose 75+ series) 10/11/2027 Hepatitis B Immunization Aged Out No longer eligible based on patient's age to complete this topic Human Papillomavirus (HPV) Immunization Aged Out No longer eligible b ased on patient's age to complete this topic Meningococcal Immunization (ACWY) Aged Out No longer eligible based on patient's age to complete this topic Rotavirus Immunization Aged Out No lo nger eligible based on patient's age to complete this topic Care Teams Customer Operations Associate Relationship Specialty Start Date End Date Kane Rodriguez MD PCP - General Family Medicine 08/10/16
--- OUTSIDE RECORDS SUMMARY | 2025-01-25 11:39 | XMS_ITS | Patient Health Record ---
Author Organization [facility] Address [address] [place], [place] [address] Care Team Providers Care Combustion Analyst Name Role Phone Ericka Levi Unavailable [phone] Migration, Provider Unavailable Unavailable Allergies Allergen (clinical drug ingredient) Drug/Non Drug Allergy documented on EMR Reaction Allergy Type Onset Date Status metformin metFORMIN Unknown Drug Allergy Active Results Component Value Reference Range Flag Notes COMPREHENSIVE METABOLIC PANE L Reviewed date:02/28/2024 06:58:56 PM Interpretation: Performing Lab:, [facility], [facility] [address], [place], [address] [facility] Notes/Report: Fasting reference interval For someone without known diabetes, a glucose value between 100 and 125 mg/dL is consistent with prediabetes and should be confirmed with a follow-up test. Not Reported: BUN and Creatinine are within reference range. GLUCOSE 100 65-99 mg/dL H UREA NITROGEN (BUN) 17 7-25 mg/dL N CREATININE 0.64 0.60-1.00 mg/dL N EGFR 94 > OR = 60 mL/min/1.73m2 N BUN/CREATININE RATIO SEE NOTE: 6-22 (calc) SODIUM 139 135-146 mmol/L N POTASSIUM 4.7 3.5-5.3 mmol/L N CHLORIDE 105 98-110 mmol/L N CARBON DIOXIDE 30 20-32 mmol/L N CALCIUM 9.6 8.6-10.4 mg/dL N PROTEIN, TOTAL 6.5 6.1-8.1 g/dL N ALBUMIN 3.8 3.6-5.1 g/dL N GLOBULIN 2.7 1.9-3.7 g/dL (calc) N ALBUMIN/GLOBULIN RATIO 1.4 1.0-2.5 (calc) N BILIRUBIN, TOTAL 1.2 0.2-1.2 mg/dL N ALKALINE PHOSPHATASE 45 37-153 U/L N AST 13 10-35 U/L N ALT 21 6-29 U/L N T3, FREE Reviewed date:02/29/2024 09:25:17 AM Interpretation: Performing Lab:SERVANDO, [facility], [address] [facility], [place], [address] Paulie Bearden MD Notes/Report: T3, FREE 2.6 2.3-4.2 pg/mL N HEMOGLOBIN A1c Reviewed date:02/29/2024 09:25:17 AM Interpretation: Performing Lab:[facility], [address] [place], [address] Paulie Bearden Notes/Report: For the purpose of screening for the presence of diabetes: <5.7% Consistent with the absence of diabetes 5.7-6.4% Consistent with increased risk for diabetes (prediabetes) > or =6.5% Consistent with diabetes This assay result is consistent with a decreased risk of diabetes. Currently, no consensus exists regarding use of hemoglobin A1c for diagnosis of diabetes in children. According to [place] Diabetes Association (ADA) guidelines, hemoglobin A1c <7.0% represents optimal control in non- diabetic patients. Different metrics may apply to specific patient populations. Standards of Medical Care in Diabetes(ADA). HEMOGLOBIN A1c 5.5 <5.7 % of total Hgb N CBC (INCLUDES DIFF/PLT) Reviewed date:02/29/2024 09:25:17 AM Interpretation: Performing Lab:[facility], [address] [place], [address] [facility] Homer[facility] Bearden Notes/Report: For adults, a slight decrease in the calculated MCHC value (in the range of 30 to 32 g/dL) is most likely not clinically significant; however, it should be interpreted with caution in correlation with other red cell parameters and the patient's clinical condition. WHITE BLOOD CELL COUNT 5.4 3.8-10.8 Thousand/uL N RED BLOOD CELL COUNT 4.79 3.80-5.10 Million/uL N HEMOGLOBIN 13.3 11.7-15.5 g/dL N HEMATOCRIT 43.0 35.0-45.0 % N MCV 89.8 80.0-100.0 fL N MCH 27.8 27.0-33.0 pg N MCHC 30.9 32.0-36.0 g/dL L RDW 13.2 11.0-15.0 % N PLATELET COUNT 212 140-400 Thousand/uL N MPV 11.4 7.5-12.5 fL N ABSOLUTE NEUTROPHILS 3089 1946-9176 cells/uL N ABSOLUTE LYMPHOCYTES 0361 801-9753 cells/uL N ABSOLUTE MONOCYTES 297 200-950 cells/uL N ABSOLUTE EOSINOPHILS 38 15-500 cells/uL N ABSOLUTE BASOPHILS 49 0-200 cells/uL N NEUTROPHILS 57.2 N LYMPHOCYTES 35.7 N MONOCYTES 5.5 N EOSINOPHILS 0.7 N BASOPHILS 0.9 N MICROALBUMIN, RANDOM URINE ( W/CREATININE) Reviewed date:02/29/2024 09:25:17 AM Interpretation: Performing Lab:SERVANDO [facility], [address] [place], [address] Paulie Bearden MD Notes/Report: Reference Range: Reference Range Not established The ADA defines abnormalities in albumin excretion as follows: Albuminuria Category Result (mg/g creatinine) Normal to Mildly increased <30 Moderately increased 30-299 Severely increased > OR = 300 The ADA recommends that at least two of three specimens collected within a 3-6 month period be abnormal before considering a patient to be within a diagnostic category. CREATININE, RANDOM URINE 96 20-275 mg/dL N ALBUMIN, URINE 0.4 See Note: mg/dL N ALBUMIN/CREATININE RATIO, RANDOM URINE 4 <30 mg/g creat N LIPID PANEL Reviewed date:02/28/2024 06:59:09 PM Interpretation: Performing Lab:[facility], [address] , [place], [address] Paulie Bearden Notes/Report: Reference range: <100 Desirable range <100 mg/dL for primary prevention; <70 mg/dL for patients with CHD or diabetic patients with > or = 2 CHD risk factors. LDL-C is now calculated using the Vladimir-Mckayla calculation, which is a validated novel method providing better accuracy than the Friedewald equation in the estimation of LDL-C. Vladimir SS et al. CLAYTON. 2013;310(19): 5640-5250 (http://education.[employer]/faq/IZM318) For patients with diabetes plus 1 major ASCVD risk factor, treating to a non-HDL-C goal of <100 mg/dL (LDL-C of <70 mg/dL) is considered a therapeutic option. CHOLESTEROL, TOTAL 166 <200 mg/dL N HDL CHOLESTEROL 64 > OR = 50 mg/dL N TRIGLYCERIDES 57 <150 mg/dL N LDL-CHOLESTEROL 88 N CHOL/HDLC RATIO 2.6 <5.0 (calc) N NON HDL CHOLESTEROL 102 <130 mg/dL (calc) N T4, FREE Reviewed date:02/29/2024 09:25:17 AM Interpretation: Performing Lab:WARNER [place] [address] [place], [address] [facility] Notes/Report: T4, FREE 1.3 0.8-1.8 ng/dL N TSH Reviewed date:02/29/2024 09:25:17 AM Interpretation: Performing Lab:WARNER [facility] [address] [place], [address] [facility] Notes/Report: TSH 1.21 0.40-4.50 mIU/L N TESTOSTERONE, TOTAL, MS Reviewed date:03/02/2024 07:58:29 PM Interpretation: Performing Lab:[facility], [facility], [address] [place] [address], [address], [place], [address] Jack Ramon MD,PhD Notes/Report: For additional information, please refer to https://education.Adventi/faq/TotalTestosteroneLCMSMS (This link is being provided for informational/educational purposes only.) (Note) This test was developed and its analytical performance characteristics have been determined by [employer] It has not been cleared or approved by the FDA. This assay has been validated pursuant to the CLIA regulations and is used for clinical purposes. [facility] [address] [place] [address],[address] [facility] [address] Jack Ramon MD, PhD TESTOSTERONE, TOTAL, MS 24 2-45 ng/dL DEXAMETHASONE Reviewed date:03/28/2024 03:58:03 PM Interpretation: Performing Lab:García CALDERON/[facility],, [address], [place], [address] Alysha Higginbotham MD,PhD,STACEY Notes/Report: Reference Ranges for Dexamethasone: Baseline: Less than 20 ng/dL 1 mg dexamethasone overnight: 180-550 ng/dL (8:00-10:00 AM) This test was developed and its analytical performance characteristics have been determined by [facility]. It has not been cleared or approved by FDA. This assay has been validated pursuant to the CLIA regulations and is used for clinical purposes. DEXAMETHASONE 179 CORTISOL, TOTAL Reviewed date:03/19/2024 11:59:40 AM Interpretation: Performing Lab:García AL[facility], [address] [place], [address] Paulie Bearden MD Notes/Report: Reference Range: For 8 a.m.(7-9 a.m.) Specimen: 4.0-22.0 Reference Range: For 4 p.m.(3-5 p.m.) Specimen: 3.0-17.0 * Please interpret above results accordingly * CORTISOL, TOTAL 1.3 L .COMPREHENSIVE METABOLIC ONOFRE (09963) [facility] Reviewed date:08/03/2024 08:59:26 PM Interpretation: Performing Lab:García HYLTONTwo [facility] Psychiatric HospitalXzyqr[address] [facility] HospitalVkilmkkFN[address] Paulie Bearden Notes/Report: FASTING:YES FASTING: YES GLUCOSE 96 65-99 mg/dL N Fasting reference interval UREA NITROGEN (BUN) 22 7-25 mg/dL N CREATININE 0.69 0.60-1.00 mg/dL N EGFR 93 > OR = 60 mL/min/1.73m2 N BUN/CREATININE RATIO SEE NOTE: 6-22 (calc) Not Reported: BUN and Creatinine are within reference range. SODIUM 141 135-146 mmol/L N POTASSIUM 4.4 3.5-5.3 mmol/L N CHLORIDE 106 98-110 mmol/L N CARBON DIOXIDE 29 20-32 mmol/L N CALCIUM 9.7 8.6-10.4 mg/dL N PROTEIN, TOTAL 6.8 6.1-8.1 g/dL N ALBUMIN 3.9 3.6-5.1 g/dL N GLOBULIN 2.9 1.9-3.7 g/dL (calc) N ALBUMIN/GLOBULIN RATIO 1.3 1.0-2.5 (calc) N BILIRUBIN, TOTAL 1.2 0.2-1.2 mg/dL N ALKALINE PHOSPHATASE 43 37-153 U/L N AST 13 10-35 U/L N ALT 21 6-29 U/L N .LIPID PANEL, STANDARD (7600 ) Reviewed date:08/03/2024 08:59:26 PM Interpretation: Performing Lab:WARNER [facility] [place] [address] YyuykigUM[address] [facility] Notes/Report: FASTING:YES FASTING: YES CHOLESTEROL, TOTAL 163 <200 mg/dL N HDL CHOLESTEROL 58 > OR = 50 mg/dL N TRIGLYCERIDES 49 <150 mg/dL N LDL-CHOLESTEROL 91 N Reference range: <100 Desirable range <100 mg/dL for primary prevention; <70 mg/dL for patients with CHD or diabetic patients with > or = 2 CHD risk factors. LDL-C is now calculated using the Ana Laura calculation, which is a validated novel method providing better accuracy than the Friedewald equation in the estimation of LDL-C. Vladimir SS et al. CLAYTON. 2013;310(19): 9025-4294 (http://education.Zerply/faq/FAQ16 4) CHOL/HDLC RATIO 2.8 <5.0 (calc) N NON HDL CHOLESTEROL 105 <130 mg/dL (calc) N For patients with diabetes plus 1 major ASCVD risk factor, treating to a non-HDL-C goal of <100 mg/dL (LDL-C of <70 mg/dL) is considered a therapeutic option. .CBC (INCLUDES DIFF/PLT) (63 99) Reviewed date:08/03/2024 08:59:26 PM Interpretation: Performing Lab:WARNER [place] [address] [address] Mohan EljnkelDX[address] [facility] Notes/Report: FASTING:YES FASTING: YES WHITE BLOOD CELL COUNT 6.1 3.8-10.8 Thousand/uL N RED BLOOD CELL COUNT 4.93 3.80-5.10 Million/uL N HEMOGLOBIN 13.8 11.7-15.5 g/dL N HEMATOCRIT 43.5 35.0-45.0 % N MCV 88.2 80.0-100.0 fL N MCH 28.0 27.0-33.0 pg N MCHC 31.7 32.0-36.0 g/dL L For adults, a slight decrease in the calculated MCHC value (in the range of 30 to 32 g/dL) is most likely not clinically significant; however, it should be interpreted with caution in correlation with other red cell parameters and the patient's clinical condition. RDW 13.1 11.0-15.0 % N PLATELET COUNT 187 140-400 Thousand/uL N MPV 10.9 7.5-12.5 fL N ABSOLUTE NEUTROPHILS 3562 1480-4861 cells/uL N ABSOLUTE LYMPHOCYTES 0398 051-2058 cells/uL N ABSOLUTE MONOCYTES 519 200-950 cells/uL N ABSOLUTE EOSINOPHILS 98 15-500 cells/uL N ABSOLUTE BASOPHILS 61 0-200 cells/uL N NEUTROPHILS 58.4 N LYMPHOCYTES 30.5 N MONOCYTES 8.5 N EOSINOPHILS 1.6 N BASOPHILS 1.0 N T4, FREE (866) Reviewed date:08/03/2024 08:59:26 PM Interpretation: Performing Lab:WARNER [place] [address] [address] Aubrey Mohan [address] [place] Notes/Report: FASTING:YES FASTING: YES T4, FREE 1.4 0.8-1.8 ng/dL N TSH (899) Reviewed date:08/03/2024 08:59:26 PM Interpretation: Performing Lab:García HYLTONVincent [place] [address] [address] Aub[address] Mohan [address] April Bearden Notes/Report: FASTING:YES FASTING: YES TSH 1.12 0.40-4.50 mIU/L N T3, FREE (17617) Reviewed date:08/06/2024 02:22:05 PM Interpretation: Performing Lab:García AL-Tswyio[address] Lars FrancoaKS[address] [facility] Rakel Bearden MD Notes/Report: FASTING:YES FASTING: YES T3, FREE 3.0 2.3-4.2 pg/mL N CORTISOL, FREE, 24 HOUR URIN E (01116) Reviewed date:06/05/2024 10:59:27 AM Interpretation: Performing Lab:García CALDERON/[facility],[address] [facility] HospitalCA[address] Alysha Higginbotham MD,PhD,STACEY Notes/Report: FASTING:YES URINE VOLUME: 1700/24 FASTING: YES TOTAL VOLUME 1700 CORTISOL, FREE, URINE 54.1 4.0-50.0 mcg/24 h H CORTISOL, FREE, URINE 36.5 Reference Range: ADULTS: 3.1-42.3 CREATININE, URINE 1.48 0.50-2.15 g/24 h This test was developed and its analytical performance characteristics have been determined by [facility]. It has not been cleared or approved by the FDA. This assay has been validated pursuant to the CLIA regulations and is used for clinical purposes. CORTISOL, LC/MS, SALIVA, 2 S AMPLEJinny ([id number]) Reviewed date:06/05/2024 10:59:21 AM Interpretation: Performing Lab:EZ, [facility],[address] [facility] Alysha Higginbotham MD,PhD,STACEY Notes/Report: FASTING:YES URINE VOLUME: 1700/24 FASTING: YES DRAW DATE 1 05/27/2024 DRAW TIME 1 11:00PM CORTISOL, SALIVA SAMPLE 1 <0.03 8-10 AM: 0.04-0.56 mcg/dL noon-2 PM: < OR = 0.21 mcg/dL 4-6 PM: < OR = 0.15 mcg/dL 10 PM-1 AM: < OR = 0.09 mcg/dL This test was developed and its analytical performance characteristics have been determined by [facility]. It has not been cleared or approved by the FDA. This assay has been validated pursuant to the CLIA regulations and is used for clinical purposes. DRAW DATE 2 05/28/2024 DRAW TIME 2 11:05PM CORTISOL, SALIVA SAMPLE 2 <0.03 8-10 AM: 0.04-0.56 mcg/dL noon-2 PM: < OR = 0.21 mcg/dL 4-6 PM: < OR = 0.15 mcg/dL 10 PM-1 AM: < OR = 0.09 mcg/dL This test was developed and its analytical performance characteristics have been determined by [facility]. It has not been cleared or approved by the FDA. This assay has been validated pursuant to the CLIA regulations and is used for clinical purposes. TSH Reviewed date:04/13/2024 06:57:18 PM Interpretation: Performing Lab:[facility], [address] [place], [address] [facility] Notes/Report: TSH 2.95 0.40-4.50 mIU/L N T4, FREE Reviewed date:04/13/2024 06:57:18 PM Interpretation: Performing Lab:WARNER, [facility], [facility] [place], [address] [facility] Notes/Report: T4, FREE 1.2 0.8-1.8 ng/dL N LIPID PANEL Reviewed date:04/11/2024 07:04:40 PM Interpretation: Performing Lab:[facility], [facility] [place], [address] [facility] Notes/Report: Reference range: <100 Desirable range <100 mg/dL for primary prevention; <70 mg/dL for patients with CHD or diabetic patients with > or = 2 CHD risk factors. LDL-C is now calculated using the Vladimir-Block calculation, which is a validated novel method providing better accuracy than the Friedewald equation in the estimation of LDL-C. Vladimir GUTIERREZ et al. CLAYTON. 2013;310(19): 5012-2378 (http://education.[employer].Red Mapache/faq/FUP368) For patients with diabetes plus 1 major ASCVD risk factor, treating to a non-HDL-C goal of <100 mg/dL (LDL-C of <70 mg/dL) is considered a therapeutic option. CHOLESTEROL, TOTAL 165 <200 mg/dL N HDL CHOLESTEROL 66 > OR = 50 mg/dL N TRIGLYCERIDES 63 <150 mg/dL N LDL-CHOLESTEROL 85 N CHOL/HDLC RATIO 2.5 <5.0 (calc) N NON HDL CHOLESTEROL 99 <130 mg/dL (calc) N VITAMIN B12/FOLATE, SERUM PA WHIT Reviewed date:04/13/2024 06:57:18 PM Interpretation: Performing Lab:Garc[facility], [address] [place], [address] Paulie Bearden MD Notes/Report: Reference Range Low: <3.4 Borderline: 3.4-5.4 Normal: >5.4 VITAMIN B12 2145 892-3689 pg/mL H FOLATE, SERUM 22.9 N CBC (INCLUDES DIFF/PLT) Reviewed date:04/11/2024 07:04:40 PM Interpretation: Performing Lab:[facility], [address] [place], [address] Paulie Bearden Notes/Report: For adults, a slight decrease in the calculated MCHC value (in the range of 30 to 32 g/dL) is most likely not clinically significant; however, it should be interpreted with caution in correlation with other red cell parameters and the patient's clinical condition. WHITE BLOOD CELL COUNT 4.7 3.8-10.8 Thousand/uL N RED BLOOD CELL COUNT 5.05 3.80-5.10 Million/uL N HEMOGLOBIN 14.0 11.7-15.5 g/dL N HEMATOCRIT 45.6 35.0-45.0 % H MCV 90.3 80.0-100.0 fL N MCH 27.7 27.0-33.0 pg N MCHC 30.7 32.0-36.0 g/dL L RDW 13.0 11.0-15.0 % N PLATELET COUNT 206 140-400 Thousand/uL N MPV 11.0 7.5-12.5 fL N ABSOLUTE NEUTROPHILS 1598 0736-6192 cells/uL N ABSOLUTE LYMPHOCYTES 2571 850-3900 cells/uL N ABSOLUTE MONOCYTES 371 200-950 cells/uL N ABSOLUTE EOSINOPHILS 99 15-500 cells/uL N ABSOLUTE BASOPHILS 61 0-200 cells/uL N NEUTROPHILS 34 N LYMPHOCYTES 54.7 N MONOCYTES 7.9 N EOSINOPHILS 2.1 N BASOPHILS 1.3 N INSULIN Reviewed date:04/13/2024 06:57:18 PM Interpretation: Performing Lab:SERVANDO [facility], [address] [place], [address] Paulie Bearden MD Notes/Report: Reference Range < or = 18.4 Risk: Optimal < or = 18.4 Moderate NA High >18.4 Adult cardiovascular event risk category cut points (optimal, moderate, high) are based on Insulin Reference Interval studies performed at [facility] in 2021. INSULIN 9.4 N HEMOGLOBIN A1c Reviewed date:04/13/2024 06:57:18 PM Interpretation: Performing Lab:[facility], [address] [place], [address] Paulie Bearden Notes/Report: For the purpose of screening for the presence of diabetes: <5.7% Consistent with the absence of diabetes 5.7-6.4% Consistent with increased risk for diabetes (prediabetes) > or =6.5% Consistent with diabetes This assay result is consistent with a decreased risk of diabetes. Currently, no consensus exists regarding use of hemoglobin A1c for diagnosis of diabetes in children. According to [place] Diabetes Association (ADA) guidelines, hemoglobin A1c <7.0% represents optimal control in non- diabetic patients. Different metrics may apply to specific patient populations. Standards of Medical Care in Diabetes(ADA). HEMOGLOBIN A1c 5.6 <5.7 % of total Hgb N T3, FREE Reviewed date:04/13/2024 06:57:18 PM Interpretation: Performing Lab:SERVANDO [facility], [address] [place], [address] Paulie Bearden MD Notes/Report: T3, FREE 2.6 2.3-4.2 pg/mL N VITAMIN D, 25-HYDROXY, LC/MS /MS Reviewed date:04/13/2024 06:57:18 PM Interpretation: Performing Lab:SERVANDO [facility]Debbie, [address] [place], [address] Paulie Bearden MD Notes/Report: Vitamin D Status 25-OH Vitamin D: Deficiency: <20 ng/mL Insufficiency: 20 - 29 ng/mL Optimal: > or = 30 ng/mL For 25-OH Vitamin D testing on patients on D2-supplementation and patients for whom quantitation of D2 and D3 fractions is required, the QuestAssureD(TM) 25-OH VIT D, (D2,D3), LC/MS/MS is recommended: order code 61647 (patients >2yrs). See Note 1 Note 1 For additional information, please refer to http://education.S[employer].Red Mapache/faq/AJX902 (This link is being provided for informational/ educational purposes only.) VITAMIN D,25-OH,TOTAL,IA 78 30-100 ng/mL N COMPREHENSIVE METABOLIC PANE L Reviewed date:04/11/2024 07:04:39 PM Interpretation: Performing Lab:[facility], [address] [place], [address] EmelynJacquelin Bearden Notes/Report: Fasting reference interval GLUCOSE 84 65-99 mg/dL N UREA NITROGEN (BUN) 29 7-25 mg/dL H CREATININE 0.72 0.60-1.00 mg/dL N EGFR 89 > OR = 60 mL/min/1.73m2 N BUN/CREATININE RATIO 40 6-22 (calc) H SODIUM 141 135-146 mmol/L N POTASSIUM 4.4 3.5-5.3 mmol/L N CHLORIDE 105 98-110 mmol/L N CARBON DIOXIDE 31 20-32 mmol/L N CALCIUM 10.2 8.6-10.4 mg/dL N PROTEIN, TOTAL 6.8 6.1-8.1 g/dL N ALBUMIN 4.0 3.6-5.1 g/dL N GLOBULIN 2.8 1.9-3.7 g/dL (calc) N ALBUMIN/GLOBULIN RATIO 1.4 1.0-2.5 (calc) N BILIRUBIN, TOTAL 0.9 0.2-1.2 mg/dL N ALKALINE PHOSPHATASE 44 37-153 U/L N AST 16 10-35 U/L N ALT 23 6-29 U/L N TSH (899) Reviewed date:01/21/2025 10:18:50 AM Interpretation: Performing Lab:García AL-Zuuhro[address], WcwyxmWG[address] Paulie Bearden MD Notes/Report: FASTING:YES FASTING: YES TSH 2.71 0.40-4.50 mIU/L N T4, FREE (866) Reviewed date:01/21/2025 10:18:50 AM Interpretation: Performing Lab:García ALa101Bladimir [address]osta, VxpjxlVL[address] Paulie Bearden MD Notes/Report: FASTING:YES FASTING: YES T4, FREE 1.3 0.8-1.8 ng/dL N VITAMIN B12/FOLATE, SERUM PA WHIT (7065) Reviewed date:01/21/2025 10:18:50 AM Interpretation: Performing Lab:García AL-Ddwbmr764[address], VwwlxiMP[address] Paulie Bearden MD Notes/Report: FASTING:YES FASTING: YES VITAMIN B12 401 209-8324 pg/mL N FOLATE, SERUM 20.1 N Reference Range Low: <3.4 Borderline: 3.4-5.4 Normal: >5.4 DEXAMETHASONE (69572) Reviewed date:06/10/2024 09:19:34 PM Interpretation: Performing Lab:García CALDERON/[facility],[address] Sh[address] maritoMountain Point Medical CenterBkwlfyuaepDI[address] Alysha Higginbotham MD,PhD,STACEY Notes/Report: FASTING:YES FASTING: YES DEXAMETHASONE <20 Reference Ranges for Dexamethasone: Baseline: Less than 20 ng/dL 1 mg dexamethasone overnight: 180-550 ng/dL (8:00-10:00 AM) This test was developed and its analytical performance characteristics have been determined by [facility]. It has not been cleared or approved by the FDA. This assay has been validated pursuant to the CLIA regulations and is used for clinical purposes. ACTH, PLASMA (211) Reviewed date:06/05/2024 10:59:15 AM Interpretation: Performing Lab:García OREILLY/Elisabet RankinChucho [id number] [facility] av[facility]alelakhwinder Mohan, XcqzfthcfLL[address] Kane Appiah M.D.,PhD Notes/Report: FASTING:YES FASTING: YES ACTH, PLASMA 10 6-50 pg/mL Reference range applies only to specimens collected between 7am-10am. CORTISOL, TOTAL (367) Reviewed date:05/31/2024 11:54:23 AM Interpretation: Performing Lab:García AL-Mtdfrz66964 [address], AtfpgfRV[address] Paulie Bearden MD Notes/Report: FASTING:YES FASTING: YES CORTISOL, TOTAL 18.8 N Reference Range: For 8 a.m.(7-9 a.m.) Specimen: 4.0-22.0 Reference Range: For 4 p.m.(3-5 p.m.) Specimen: 3.0-17.0 * Please interpret above results accordingly * DHEA SULFATE (402) Reviewed date:05/31/2024 11:54:38 AM Interpretation: Performing Lab:García AL-Nyvpbg72283 [address], FeanybDV[address] Paulie Beadren MD Notes/Report: FASTING:YES FASTING: YES DHEA SULFATE 17 4-157 mcg/dL N CORTISOL, TOTAL (367) Reviewed date:06/06/2024 08:32:53 AM Interpretation: Performing Lab:García AL-Kcbjgz425[address], VceiiuPB[address] Paulie Bearden MD Notes/Report: FASTING:NO FASTING: NO CORTISOL, TOTAL 1.5 L Reference Range: For 8 a.m.(7-9 a.m.) Specimen: 4.0-22.0 Reference Range: For 4 p.m.(3-5 p.m.) Specimen: 3.0-17.0 * Please interpret above results accordingly * DEXAMETHASONE ([id number]) Reviewed date:06/10/2024 09:19:34 PM Interpretation: Performing Lab:García CALDERON/[facility],[address] [facility] HospitalCA[address] Alysha Higginbotham MD,PhD,STACEY Notes/Report: FASTING:NO FASTING: NO DEXAMETHASONE 149 Reference Ranges for Dexamethasone: Baseline: Less than 20 ng/dL 1 mg dexamethasone overnight: 180-550 ng/dL (8:00-10:00 AM) This test was developed and its analytical performance characteristics have been determined by [facility]. It has not been cleared or approved by the FDA. This assay has been validated pursuant to the CLIA regulations and is used for clinical purposes. .VITAMIN D,25-OH,TOTAL,IA (1 7306) Reviewed date:01/21/2025 10:18:50 AM Interpretation: Performing Lab:García AL-Jqorqt42897 David FrancoHhhtkyMV[address] Paulie Bearden MD Notes/Report: FASTING:YES FASTING: YES VITAMIN D,25-OH,TOTAL,IA 72 30-100 ng/mL N Vitamin D Status 25-OH Vitamin D: Deficiency: <20 ng/mL Insufficiency: 20 - 29 ng/mL Optimal: > or = 30 ng/mL For 25-OH Vitamin D testing on patients on D2-supplementation and patients for whom quantitation of D2 and D3 fractions is required, the QuestAssureD(TM) 25-OH VIT D, (D2,D3), LC/MS/MS is recommended: order code 56947 (patients >2yrs). See Note 1 Note 1 For additional information, please refer to http://education.[employer]/faq/FFB766 (This link is being provided for informational/ educational purposes only.) T3, FREE (53275) Reviewed date:01/21/2025 10:18:50 AM Interpretation: Performing Lab:García AL-Nyfgwy03010 Lars FrancoaKS[address] Paulie Bearden MD Notes/Report: FASTING:YES FASTING: YES T3, FREE 2.9 2.3-4.2 pg/mL N .HEMOGLOBIN A1c (496) Reviewed date:01/21/2025 10:18:50 AM Interpretation: Performing Lab:[id number] Paulie Bearden Notes/Report: FASTING:YES FASTING: YES HEMOGLOBIN A1c 5.6 <5.7 % of total Hgb N For the purpose of screening for the presence of diabetes: <5.7% Consistent with the absence of diabetes 5.7-6.4% Consistent with increased risk for diabetes (prediabetes) > or =6.5% Consistent with diabetes This assay result is consistent with a decreased risk of diabetes. Currently, no consensus exists regarding use of hemoglobin A1c for diagnosis of diabetes in children. According to [place] [employer] (ADA) guidelines, hemoglobin A1c <7.0% represents optimal control in non- diabetic patients. Different metrics may apply to specific patient populations. Standards of Medical Care in Diabetes(ADA). .CBC (INCLUDES DIFF/PLT) (63 99) Reviewed date:01/21/2025 10:18:50 AM Interpretation: Performing Lab:García [id number] Lars [id number] Paulie Bearden MD Notes/Report: FASTING:YES FASTING: YES WHITE BLOOD CELL COUNT 4.7 3.8-10.8 Thousand/uL N RED BLOOD CELL COUNT 4.92 3.80-5.10 Million/uL N HEMOGLOBIN 13.7 11.7-15.5 g/dL N HEMATOCRIT 43.9 35.0-45.0 % N MCV 89.2 80.0-100.0 fL N MCH 27.8 27.0-33.0 pg N MCHC 31.2 32.0-36.0 g/dL L For adults, a slight decrease in the calculated MCHC value (in the range of 30 to 32 g/dL) is most likely not clinically significant; however, it should be interpreted with caution in correlation with other red cell parameters and the patient's clinical condition. RDW 13.3 11.0-15.0 % N PLATELET COUNT 207 140-400 Thousand/uL N MPV 11.3 7.5-12.5 fL N ABSOLUTE NEUTROPHILS 1631 4390-4521 cells/uL N ABSOLUTE LYMPHOCYTES 2547 850-3900 cells/uL N ABSOLUTE MONOCYTES 381 200-950 cells/uL N ABSOLUTE EOSINOPHILS 80 15-500 cells/uL N ABSOLUTE BASOPHILS 61 0-200 cells/uL N NEUTROPHILS 34.7 N LYMPHOCYTES 54.2 N MONOCYTES 8.1 N EOSINOPHILS 1.7 N BASOPHILS 1.3 N .LIPID PANEL, STANDARD (7600 ) Reviewed date:01/21/2025 10:18:50 AM Interpretation: Performing Lab:[id number] [facility], [id number] Paulie Bearden MD Notes/Report: FASTING:YES FASTING: YES CHOLESTEROL, TOTAL 156 <200 mg/dL N HDL CHOLESTEROL 62 > OR = 50 mg/dL N TRIGLYCERIDES 51 <150 mg/dL N LDL-CHOLESTEROL 81 N Reference range: <100 Desirable range <100 mg/dL for primary prevention; <70 mg/dL for patients with CHD or diabetic patients with > or = 2 CHD risk factors. LDL-C is now calculated using the Ana Laura calculation, which is a validated novel method providing better accuracy than the Friedewald equation in the estimation of LDL-C. Vladimir GUTIERREZ et al. CLAYTON. 2013;310(19): 5988-5777 (http://education.[employer].Red Mapache/faq/FAQ16 4) CHOL/HDLC RATIO 2.5 <5.0 (calc) N NON HDL CHOLESTEROL 94 <130 mg/dL (calc) N For patients with diabetes plus 1 major ASCVD risk factor, treating to a non-HDL-C goal of <100 mg/dL (LDL-C of <70 mg/dL) is considered a therapeutic option. .COMPREHENSIVE METABOLIC ONOFRE EL (43598) CMP Reviewed date:01/21/2025 10:18:50 AM Interpretation: Performing Lab:[facility], [facility][id number] David Larios, [id number] Paulie Bearden MD Notes/Report: FASTING:YES FASTING: YES GLUCOSE 89 65-99 mg/dL N Fasting reference interval UREA NITROGEN (BUN) 20 7-25 mg/dL N CREATININE 0.67 0.60-1.00 mg/dL N EGFR 93 > OR = 60 mL/min/1.73m2 N BUN/CREATININE RATIO SEE NOTE: 6-22 (calc) Not Reported: BUN and Creatinine are within reference range. SODIUM 140 135-146 mmol/L N POTASSIUM 4.4 3.5-5.3 mmol/L N CHLORIDE 105 98-110 mmol/L N CARBON DIOXIDE 30 20-32 mmol/L N CALCIUM 9.5 8.6-10.4 mg/dL N PROTEIN, TOTAL 6.6 6.1-8.1 g/dL N ALBUMIN 3.9 3.6-5.1 g/dL N GLOBULIN 2.7 1.9-3.7 g/dL (calc) N ALBUMIN/GLOBULIN RATIO 1.4 1.0-2.5 (calc) N BILIRUBIN, TOTAL 1.5 0.2-1.2 mg/dL H ALKALINE PHOSPHATASE 37 37-153 U/L N AST 16 10-35 U/L N ALT 24 6-29 U/L N Reason For Referral No Information Medications Medication SIG (Take, Route, Frequency, Duration) Notes Start Date End Date Status Liothyronine Sodium 5 MCG Tablet TAKE 1 TABLET BY MOUTH DAILY AT NOON; Duration: 90 Active Levothyroxine Sodium 75 MCG Tablet 1 tab(s) orally once a day Active Levothyroxine Sodium 75 MCG Tablet 1 tablet in the morning on an empty stomach Orally Once a day; Duration: 90 days 09/07/2024 Active Liothyronine Sodium 5 MCG Tablet 1 tablet on an empty stomach Orally in afternoon; Duration: 90 days 09/07/2024 Active Social History Social History Additional Details Category Social Info Options Details Migrated Social History Migrated Social History (Alcohol:):yes rarely (Recreational drug use:):no (Smoking:):no Section Notes: Non-Contributory Non-Contributory Problems Problem Type SNOMED Code ICD Code Onset Dates Problem Status W/U Status Risk Notes Problem Hypothyroidism (83008195) Hypothyroidism, unspecified (E03.9) Active confirmed Problem Disorder of adrenal gland (02864662) Disorder of adrenal gland, unspecified (E27.9) Active confirmed Problem Obesity (317038817) Obesity, unspecified (E66.9) Active confirmed Problem Essential hypertension (70203303) Essential (primary) hypertension (I10) Active confirmed Problem Insulin resistance (533018617) Insulin resistance (E88.819) Active confirmed Vital Signs Heart Rate 64 /min 09/07/2024 Height-cm 167.64 cm 09/07/2024 Oximetry 98 % 09/07/2024 Blood pressure diastolic 80 mm Hg 09/07/2024 Weight-kg 103.51 kg 09/07/2024 Height 66 in 09/07/2024 Blood pressure systolic 130 mm Hg 09/07/2024 Weight 228.2 lbs 09/07/2024 BMI 36.83 kg/m2 09/07/2024 Encounters Encounter Location Date Provider Diagnosis [address] [id number] 02/05/2024 Provider Migration Hypothyroidism, unspecified E03.9 and Obesity, unspecified E66.[address] Levi [id number] [place] [phone] 04/24/[address] Levi [id number] [place] [phone] 03/13/2024 Ericka Levi Hypothyroidism, unspecified E03.9 ; Essential (primary) hypertension I10 ; Obesity, unspecified E66.9 ; Dietary counseling and surveillance Z71.3 and Insulin resistance, unspecified E88.[address] Levi [address] [place] [address] 06/05/2024 Ericka Levi Hypothyroidism, unspecified E03.9 ; Obesity, unspecified E66.9 ; Disorder of adrenal gland, unspecified E27.9 and Dietary counseling and surveillance Z71.[address] Levi [address] [place] [phone] 07/17/2024 Ericka Levi Obesity, unspecified E66.9 ; Hypothyroidism, unspecified E03.9 ; Essential (primary) hypertension I10 and Dietary counseling and surveillance Z71.[address] 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 Levi [address] [place] [phone] 07/27/[address] Levi [address] [place] [phone] 01/03/2025 Ericka Levi Assessments Encounter Date Diagnosis (ICD Code) Assessment Notes Treatment Notes Treatment Clinical Notes Section Notes 02/05/2024 Hypothyroidism, unspecified (ICD-10 - E03.9) 03/13/2024 Hypothyroidism, unspecified (ICD-10 - E03.9) 03/13/2024 Essential (primary) hypertension (ICD-10 - I10) 06/05/2024 Hypothyroidism, unspecified (ICD-10 - E03.9) 06/05/2024 Obesity, unspecified (ICD-10 - E66.9) 09/07/2024 Hypothyroidism, unspecified (ICD-10 - E03.9) 09/07/2024 Obesity, unspecified (ICD-10 - E66.9) 07/17/2024 Obesity, unspecified (ICD-10 - E66.9) 07/17/2024 Hypothyroidism, unspecified (ICD-10 - E03.9) 09/07/2024 Essential (primary) hypertension (ICD-10 - I10) 06/05/2024 Disorder of adrenal gland, unspecified (ICD-10 - E27.9) 03/13/2024 Obesity, unspecified (ICD-10 - E66.9) 02/05/2024 Obesity, unspecified (ICD-10 - E66.9) 03/13/2024 Dietary counseling and surveillance (ICD-10 - Z71.3) 07/17/2024 Essential (primary) hypertension (ICD-10 - I10) 09/07/2024 Insulin resistance (ICD-10 - E88.819) 07/17/2024 Dietary counseling and surveillance (ICD-10 - Z71.3) Spent 15 minutes preventative counseling patient on dietary recommendations and changes in setting of hyperglycemia- need to restrict refined sugars and processed foods and incorporate up to 150 minutes of moderate level activity weekly. 09/07/2024 Adenoma of left adrenal gland (ICD-10 - D35.02) 03/13/2024 Insulin resistance, unspecified (ICD-10 - E88.819) 06/05/2024 Dietary counseling and surveillance (ICD-10 - Z71.3) Spent 15 minutes preventative counseling patient on dietary recommendations and changes in setting of hyperglycemia- need to restrict refined sugars and processed foods and incorporate up to 150 minutes of moderate level activity weekly. 09/07/2024 Hypercortisolism (ICD-10 - E24.9) 09/07/2024 Dietary counseling and surveillance (ICD-10 - Z71.3) Spent 15 minutes preventative counseling patient on dietary recommendations and changes in setting of hyperglycemia- need to restrict refined sugars and processed foods and incorporate up to 150 minutes of moderate level activity weekly. 03/13/2024 Other Assessment and Plan: 1. Hypertension- Patient reports not taking losartan 25 mg since , which may have contributed to the elevated blood pressure of 139/80.Plan: - Reinstate losartan 25 mg daily and monitor blood pressure. - Consider increasing the dose if needed, with caution due to patient's reported excessive sleepiness on 50 mg. - Encourage patient to adhere to medication regimen and follow up in 4 weeks to reassess blood pressure control. 2. Prediabetes- A1c of 5.5 and fasting sugar of 100 indicate good glycemic control.- Patient has discontinued Ozempic and inquired about insurance coverage for Wegovy.Plan: - Investigate insurance coverage for Wegovy and consider prescribing if covered and appropriate for the patient. - If Wegovy is not covered, explore using sleep apnea as a diagnosis code for coverage. - Monitor A1c and fasting sugar levels at the next follow-up visit. 3. Obesity- BMI over 30.Plan: - Discuss weight management strategies, including diet and exercise. - Consider prescribing Wegovy if covered by insurance and appropriate for the patient. 4. Thyroid function- Thyroid numbers within normal range, patient taking levothyroxine 75 mcg and T3 5 mcg.- Patient reports forgetting to take T3 and experiencing sleep disturbances.Plan: - Advise patient to take T3 around noon to minimize sleep disturbances. - Continue monitoring thyroid function at follow-up visits. 5. Anemia screening- MCHC, hemoglobin, and hematocrit are normal.Plan: - No intervention needed at this time. 6. Cortisol evaluation- 24-hour urine study and midnight saliva collection to be conducted for patients -present today.Plan: - Schedule 24-hour urine collection and midnight saliva collection on two different nights. - Assess cortisol levels to determine the need for a cortisol sabas. 7. Turtlepoint's disease screening- Patient to undergo blood work at [facility].Plan: - Follow up on the results of the previous test conducted on the . - Contact the lab to obtain results and determine the need for further evaluation or intervention. 8. Medication costs- Patient reports high [id number] costs for Wegovy and tirzepatide.Plan: - Investigate insurance coverage and potential cost-saving options for the patient. - Discuss alternative medications if necessary. Spent 15 minutes preventative counseling patient on dietary recommendations and changes in setting of hyperglycemia- need to restrict refined sugars and processed foods and incorporate up to 150 minutes of moderate level activity weekly. Spent 25 minutes preparing to see the patient (ex review of tests/chart), obtaining and / or reviewing separately obtained history, performing a medically appropriate examination and/or evaluation, counseling and educating the patient/family/car egiver, ordering medications, tests, or procedures, referring and communicating with other health home care scheduler, documenting clinical information in the electronic or other health record, independently interpreting results and communicating results to the patient/family/car egiver and care coordinating patient plan. Patient alert and oriented x 4 and aware of discussion noted above and in agreeance to plan in management of hypothyroidism, prediabetes, hypertension, obesity/weight management and screening for hypercortisolism. 06/05/2024 Other Assessment and Plan: 1. 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 Hypothyroidism- Continue levothyroxine 75 mcg- Continue liothyronine 5 mcg in the afternoon 4. Obesity- Continue current weight management strategies- Monitor for changes in sleep apnea symptoms Spent 25 minutes preparing to see the patient (ex review of tests/chart), obtaining and / or reviewing separately obtained history, performing a medically appropriate examination and/or evaluation, counseling and educating the patient/family/car egiver, ordering medications, tests, or procedures, referring and communicating with other health home care scheduler, documenting clinical information in the electronic or other health record, independently interpreting results and communicating results to the patient/family/car egiver and care coordinating patient plan. Patient alert and oriented x 4 and aware of discussion noted above and in agreeance to plan in management of imparired fsating glucose, obesity, concern for hypercortisolism/a drenal adenoma 07/17/2024 Other Vital Signs- Weight: 231 lbs Physical ExaminationGeneral : Well developed. Laboratory, Imaging, and Diagnostic Test Results- Urine cortisol: 54.1 (high, cutoff: 40)- Dexamethasone suppression test: 1.5 (described as high enough to treat) Spent 25 minutes preparing to see the patient (ex review of tests/chart), obtaining and / or reviewing separately obtained history, performing a medically appropriate examination and/or evaluation, counseling and educating the patient/family/car egiver, ordering medications, tests, or procedures, referring and communicating with other health home care scheduler, documenting clinical information in the electronic or other health record, independently interpreting results and communicating results to the patient/family/car egiver and care coordinating patient plan. Patient alert and oriented x 4 and aware of discussion noted above and in agreeance to plan in management of hypothyroidism, hypertension and concern for hypercortisolism/C T in transit for me to review. 09/07/2024 Other Assessment and Plan: 1. ObesityAssessment: - Patient has lost 3 pounds independently- Ericro denied due to lack of diabetes diagnosis- Insulin resistance unlikely to be covered- Ozempic suggested by bariatric specialist but not covered without diabetes- Patient averse to pills causing nausea- Second patient interested in Ozempic for weight loss- Both patients are candidates for GLP-1 agonists for weight loss and potential diabetes prevention Plan:- For first patient: Consider low-dose cortisol sabas in conjunction with GLP-1 agonist- For second patient: Initiate semaglutide (Ozempic)/wegovy - Provide 3-month starter dose at 0.25 mg weekly as a judy to see if her cortisol is of concern as she will not lose weight without cortisol sabas - Administer once-weekly injection with largest meal - Educate on potential side effects: - Mild nausea is expected - Monitor for severe symptoms (vomiting, abdominal pain) which may indicate pancreatitis - Continue using remaining Ozempic if not - If Ozempic ineffective for second patient, consider cortisol sabas- Discuss potential high costs if medication is tier 3 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 :- Imaging revealed 1.7 cm left adrenal growth, not concerning for removal- Urine cortisol 54, above cutoff of 50, suggesting cyclical cortisol secretion- No severe disease or diabetes present- Reports occasional difficulty sleeping, waking up and unable to return to sleep until eating Plan:- Consider initiating Recorlev (low-dose cortisol sabas) due to elevated urine cortisol- Monitor progress with repeated urine cortisol tests- Perform liver function tests- Reassess sleep disturbances at follow-up Spent 25 minutes preparing to see the patient (ex review of tests/chart), obtaining and / or reviewing separately obtained history, performing a medically appropriate examination and/or evaluation, counseling and educating the patient/family/car egiver, ordering medications, tests, or procedures, referring and communicating with other health home care scheduler, documenting clinical information in the electronic or other health record, independently interpreting results and communicating results to the patient/family/car egiver and care coordinating patient plan. Patient alert and oriented x 4 and aware of discussion noted above and in agreeance to plan in management of insulin resistance, obesity, hypothyroidism, adrenal adenoma and hypercortisolism. Plan Of Treatment Pending Test Test Name Order Date *CT ABDOMEN W/O CONTRAST [id number] Next Appt Details Provider Name:Ericka Levi, 01:00:00 PM, [address] [place] [address], [place], [phone], Insurance Providers Payer Name Payer Address Payer Phone Subscriber Number Group Number Insured Name Patient Relationship to Insured Coverage Start Date Coverage End Date WPS Medicare part B [address] [address] [place] [address] [id number] Michell Li Self - patient is the insured [place] [employer] [place] [address] [place] [phone] [id number] Michell Li Self - patient is the insured Medical (General) History Medical History History ICD Code Hypertension Pre-diabetic hypothyroidism Surgical History Surgery Date(Month/Year) 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
--- OUTSIDE RECORDS SUMMARY | 2025-01-25 11:39 | XMS_ITS | Encounter Summary ---
Author Organization [facility] Healthcare Address [address] [place] [id number] Care Team Providers Care Photographic Spotter Name Role Phone Fanny Lara Primary Care Pr ovider Encounter Details Date Type Department Care Team (Late st Contact Info) Description 11/28/2018 Documentation [facility] Management [id number] [place] [address] Adriana Hunt RN Social History Tobacco Use Types Packs/Day Years Used Date Smoking Tobacco: Never Smokeless Tobacco: Never Alcohol Use Standard Drinks/Week Comments Yes 0 (1 standard drink = 0.6 oz pur e alcohol) Comments No Sex and Gender Information Value Date Recorded Sex Assigned at Not on file 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
--- OUTSIDE RECORDS SUMMARY | 2025-01-25 11:40 | XMS_ITS | Patient Health Record ---
Author Organization [facility] Address [address] [address] Care Team Providers Care Conductor Road Freight Name Role Phone Ericka Levi Unavailable [phone] Migration, Provider Unavailable Unavailable Allergies Allergen (clinical drug ingredient) Drug/Non Drug Allergy documented on EMR Reaction Allergy Type Onset Date Status metformin metFORMIN Unknown Drug Allergy Active Results Component Value Reference Range Notes COMPREHENSIVE METABOLIC PANE L Reviewed date:02/28/2024 06:58:56 PM Interpretation: Performing Lab:[facility], [address] [place], [address] EmelynJacquelin Bearden Notes/Report: T3, FREE Reviewed date:02/29/2024 09:25:17 AM Interpretation: Performing Lab:[place], [address] [place], [address] Paulie Bearden MD Notes/Report: HEMOGLOBIN A1c Reviewed date:02/29/2024 09:25:17 AM Interpretation: Performing Lab:[facility], [address] [place], [address] EmelynJacquelin Bearden Notes/Report: CBC (INCLUDES DIFF/PLT) Reviewed date:02/29/2024 09:25:17 AM Interpretation: Performing Lab:[facility], [address] [place], [address] Paulie Bearden Notes/Report: MICROALBUMIN, RANDOM URINE ( W/CREATININE) Reviewed date:02/29/2024 09:25:17 AM Interpretation: Performing Lab:[place], [address] [place], [address] Emelyn-Jacquelin Bearden MD Notes/Report: LIPID PANEL Reviewed date:02/28/2024 06:59:09 PM Interpretation: Performing Lab:[facility], [facility], [facility] [place], [address] EmelynJacquelin Chen Notes/Report: T4, FREE Reviewed date:02/29/2024 09:25:17 AM Interpretation: Performing Lab:[facility], [facility], [facility] [place], [address] Emelyn-Jacquelin Chen Notes/Report: TSH Reviewed date:02/29/2024 09:25:17 AM Interpretation: Performing Lab:[facility], [facility], [facility] [place], [address] Emelyn-Jacquelin Bearden Notes/Report: TESTOSTERONE, TOTAL, MS Reviewed date:03/02/2024 07:58:29 PM Interpretation: Performing Lab:[facility], [facility], [address] [place] [address], [address], [place], [address] Jack Ramon MD,PhD Notes/Report: TESTOSTERONE, TOTAL, MS 24 2-45 ng/dL For additional information, please refer to https://education.[employer].com/faq/TotalTestosteroneLC MSMS (This link is being provided for informational/educational purposes only.) (Note) This test was developed and its analytical performance characteristics have been determined by [employer]. It has not been cleared or approved by the FDA. This assay has been validated pursuant to the CLIA regulations and is used for clinical purposes. MD [facility] [address] [address],[address] [facility] [address] Jack Ramon MD, PhD DEXAMETHASONE Reviewed date:03/28/2024 03:58:03 PM Interpretation: Performing Lab:EZ, [facility],, [address] [place], [address] Alysha Higginbotham MD,PhD,STACEY Notes/Report: DEXAMETHASONE 179 Reference Ranges for Dexamethasone: Baseline: Less than 20 ng/dL 1 mg dexamethasone overnight: 180-550 ng/dL (8:00-10:00 AM) This test was developed and its analytical performance characteristics have been determined by [facility]. It has not been cleared or approved by FDA. This assay has been validated pursuant to the CLIA regulations and is used for clinical purposes. CORTISOL, TOTAL Reviewed date:03/19/2024 11:59:40 AM Interpretation: Performing Lab:[facility], [address], [place], [address] Paulie Bearden MD Notes/Report: COMPREHENSIVE METABOLIC PANE L Reviewed date:04/11/2024 07:04:39 PM Interpretation: Performing Lab:[facility], [address] [place], [address] Paulie Bearden Notes/Report: VITAMIN D, 25-HYDROXY, LC/MS /MS Reviewed date:04/13/2024 06:57:18 PM Interpretation: Performing Lab:[facility], [address], [place], [address] Paulie Bearden MD Notes/Report: T3, FREE Reviewed date:04/13/2024 06:57:18 PM Interpretation: Performing Lab:[facility], [address], [place], [address] Paulie Bearden MD Notes/Report: HEMOGLOBIN A1c Reviewed date:04/13/2024 06:57:18 PM Interpretation: Performing Lab:[facility], [address] [place], [address] Paulie Bearden Notes/Report: INSULIN Reviewed date:04/13/2024 06:57:18 PM Interpretation: Performing Lab:[facility], [address], [place], [address] Paulie Bearden MD Notes/Report: CBC (INCLUDES DIFF/PLT) Reviewed date:04/11/2024 07:04:40 PM Interpretation: Performing Lab:[facility], [address] [place], [address] Paulie Bearden Notes/Report: VITAMIN B12/FOLATE, SERUM PA WHIT Reviewed date:04/13/2024 06:57:18 PM Interpretation: Performing Lab:[place], [facility], [address] [place], [address] Paulie Bearden MD Notes/Report: LIPID PANEL Reviewed date:04/11/2024 07:04:40 PM Interpretation: Performing Lab:, [facility], [address] [place], [address] Paulie Bearden Notes/Report: T4, FREE Reviewed date:04/13/2024 06:57:18 PM Interpretation: Performing Lab:[facility], [facility], [address] [place], [address] Paulie Bearden Notes/Report: TSH Reviewed date:04/13/2024 06:57:18 PM Interpretation: Performing Lab:[facility], [facility], [address] [place], [address] Paulie Bearden Notes/Report: Reason For Referral No Information Medications Medication SIG (Take, Route, Frequency, Duration) Notes Start Date End Date Status Liothyronine Sodium 5 MCG 1 tab(s) orall y once a day around noon; Duration: 90 days 12/13/2023 Active Wegovy 0.5 MG/0.5ML 0.5 mL Subcutaneous weekly; Duration: 90 days 03/13/2024 Active Levothyroxine Sodium 75 MCG 1 tab(s) ora lly once a day Active dexAMETHasone 1 MG 1 tablet Orally at 1 0 pm night before 8 am cortisol; Duration: 1 days 04/24/2024 Active Problems Problem Type SNOMED Code ICD Code Onset Dates Problem Status W/U Status Risk Notes Problem Essential hypertension (28149704) Essential (primary) hypertension (I10) Active confirmed Problem Hypothyroidism (82816735) Hypothyroidism, unspecified (E03.9) Active confirmed Problem Obesity (971744628) Obesity, unspecified (E66.9) Active confirmed Vital Signs Heart Rate 68 /min 04/24/2024 SpO2: 97% Blood pressure diastolic 76 mm Hg 04/24/2024 SpO 2: 97% Height 66 in 04/24/2024 SpO2: 97% Blood pressure systolic 125 mm Hg 04/24/2024 SpO2 : 97% Weight 231.6 lbs 04/24/2024 SpO2: 97% BMI 37.38 kg/m2 04/24/2024 SpO2: 97% Encounters Encounter Location Date Provider Diagnosis [place] [address] [place] [address] 03/13/2024 Ericka Levi Hypothyroidism, unspecified E03.9 ; Essential (primary) hypertension I10 ; Obesity, unspecified E66.9 ; Dietary counseling and surveillance Z71.3 and Insulin resistance, unspecified E88.819 [employer] [facility] [employer] [address] [place] [address] 04/24/2024 Ericka Levi Hypothyroidism, unspecified E03.9 ; Essential (primary) hypertension I10 ; Obesity, unspecified E66.9 and Dietary counseling and surveillance Z71.3 [employer] [address] [place] [address] 06/05/2024 [facility] [employer] [address] [place] [address] 06/05/2024 Ericka Levi [address] [address] 02/05/2024 Provider Migration Hypothyroidism, unspecified E03.9 and Obesity, unspecified E66.9 [employer] [address] [place] [address] 04/24/2024 Ericka Levi Assessments Encounter Date Diagnosis (ICD Code) Assessment Notes Treatment Notes Treatment Clinical Notes Section Notes 03/13/2024 Essential (primary) hypertension (ICD-10 - I10) 03/13/2024 Hypothyroidism, unspecified (ICD-10 - E03.9) 04/24/2024 Hypothyroidism, unspecified (ICD-10 - E03.9) 02/05/2024 Hypothyroidism, unspecified (ICD-10 - E03.9) 03/13/2024 Obesity, unspecified (ICD-10 - E66.9) 04/24/2024 Essential (primary) hypertension (ICD-10 - I10) 02/05/2024 Obesity, unspecified (ICD-10 - E66.9) 03/13/2024 Dietary counseling and surveillance (ICD-10 - Z71.3) 04/24/2024 Obesity, unspecified (ICD-10 - E66.9) 03/13/2024 Insulin resistance, unspecified (ICD-10 - E88.819) 04/24/2024 Dietary counseling and surveillance (ICD-10 - Z71.3) 03/13/2024 Other Assessment and Plan: 1. Hypertension- [...] the need for a cortisol sabas. 7. Betty's disease screening- Patient to undergo blood work at [facility].Plan: - Follow up on the results of the previous test conducted on the . - Contact the lab to obtain results and determine the need for further evaluation or intervention. 8. Medication costs- Patient reports high [id number] costs for Wegovy and tirzepatide.Plan: - Investigate [...] examination and/or evaluation, counseling and educating the patient/family/caregiver, ordering medications, tests, or procedures, referring and communicating with other health critical care registered nurse, documenting clinical information in the electronic or other health record, independently interpreting results and communicating results to the patient/family/caregiver and care coordinating patient plan. Patient alert and oriented x 4 and aware of discussion noted above and in agreeance to plan in management of hypothyroidism, prediabetes, hypertension, obesity/weight management and screening for hypercortisolism. 04/24/2024 Other Assessment and Plan: Obesity and weight management challengesPatient has a history of losing 10-12 pounds on Ozempic over 4-5 months before plateauingNot diabetic or insulin resistant, with normal glucose (84) and A1C (5.6)Sleep apnea ruled out, thyroid levels and other blood work normal, Vitamin D and cholesterol levels goodConsider cortisol evaluation due to borderline dexamethasone suppression test (DST) result of 1.3Order urine and saliva cortisol testsRepeat DST for confirmationDepending on results, may consider adrenal or pituitary imagingDiscuss potential use of cortisol blockers if cortisol is confirmed to be driving weight gain HypotensionPatient is currently on Losartan 25mg for blood pressure managementRecent blood pressure readings have been low (95/56, 98/50), with occasional lightheadednessPrevious reading of 125/76 was noted as idealReduce Losartan dose to half (12.5mg)Monitor blood pressure; aim for 100-110/60If blood pressure remains low, consider discontinuing LosartanFollow up to reassess blood pressure management Follow-up:Schedule a follow-up appointment to review test results and assess the response to interventionsEncourage patient to contact the clinic if any new or worsening symptoms occur Spent 15 minutes preventative counseling patient on [...] examination and/or evaluation, counseling and educating the patient/family/caregiver, ordering medications, tests, or procedures, referring and communicating with other health critical care registered nurse, documenting clinical information in the electronic or other health record, independently interpreting results and communicating results to the patient/family/caregiver and care coordinating patient plan. Patient alert and oriented x 4 and aware of discussion noted above and in agreeance to plan in management of hypothyroidism, hypertension, obesity/weight management and concern for underlying hypercortisolism. Plan Of Treatment No Information Insurance Providers Payer Name Payer Address Payer Phone Subscriber Number Group Number Insured Name Patient Relationship to Insured Coverage Start Date Coverage End Date WPS Medicare Part B [place] Claims Department [address] [address] [place] [address] [id number] Michell Li Self - patient is the insured [employer] [place] [id number] [employer] [facility] [place] [address] [id number] Michell Li Self - patient is the insured Medical (General) History Medical History History ICD Code Hypertension Pre-diabetic Surgical History Surgery Date(Month/Year) 1980 & 1983 Sleeve gastrectomy 2018 Hospitalization History Reason Date(Month/Year) 1980 & 1983 Breast biopsy 1977 Sleeve gastrectomy 2018
--- OUTSIDE RECORDS SUMMARY | 2025-01-25 11:40 | XMS_ITS | Encounter Summary ---
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 Role Phone Unavailable Primary Care Provider Unavailabl e Encounter Details Date Type Department Care Team (Late st Contact Info) Description 08/11/2022 Lab Requisition [facility] - DermPath Lab [address] [facility] [place] [address] Lora Stoner DO [address] [facility] [address] [place] [address] Social History Tobacco Use Types Packs/Day Years Used Date Smoking Tobacco: Never Assessed Comments Unknown Sex and Gender Information Value Date Recorded Sex Assigned at Not on file 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 Gender Identity Not on file Sexual Orientation Not on file documented as of this encounter Plan of Treatment Not on file documented as of this encounter Procedures Procedure Name Priority Date/Time Associated Diagnosis Comments DERMATOPATHOLOGY Routine 08/11/2022 1:29 PM CDT documented in this encounter Results * DERMATOPATHOLOGY (08/11/2022 1:29 PM CDT) Case Report Dermatopathology Report Case: [id number] Authorizing Provider: Lora Stoner DO Collected: 08/11/2022 01:29 PM Ordering Location: [facility] Lab Received: 08/13/2022 06:11 AM Pathologist: Nan Peacock MD Specimen: Skin, left crown of scalp 5:51 PM CDT DERMATOPATHOLOGY LABORATORY Final Diagnosis Specimen A. SKIN, left crown of scalp: BASAL CELL CARCINOMA, NODULAR TYPE (C44.41) 5:51 PM CDT DERMATOPATHOLOGY LABORATORY at 1751 CDT Clinical History R/O NMSC 3 5:51 PM CDT DERMATOPATHOLOGY LABORATORY Gross Description Specimen A: Received is one formalin filled container labeled with the patient's name and designated left crown of scalp. The specimen consists of a shave biopsy measuring 4x4x1 mm. Jar 0. 3 5:51 PM CDT DERMATOPATHOLOGY LABORATORY Microscopic Description Specimen A. SKIN, left crown of scalp: Within the dermis there are aggregates of basaloid cells with a high nuclear to cytoplasmic ratio and peripheral palisading. 3 5:51 PM CDT DERMATOPATHOLOGY LABORATORY Disclaimer An external and internal positive and negative controls are appropriate for the histochemical, immunohistochemical and immunofluorescence stain(s) in this case (if any), except where stated explicitly. The performance characteristics of the stain(s) cited in this report were developed and its performance characteristic determined by the Dermatopathology Laboratory at [facility], directed by Dr. Jarvis Hogan. These tests need not be, and therefore are not, approved by the [place] Food and Drug Administration. The tests are used for clinical purposes. Billing Codes Specimen Charges Stain Charges 96169 1 3 5:51 PM CDT DERMATOPATHOLOGY LABORATORY Embedded Images 3 5:51 PM CDT DERMATOPATHOLOGY LABORATORY Pathology/Cytolo gy TISSUE SPECIMEN FROM SKIN / Unknown 08/11/2022 1:29 PM CDT 08/13/2022 6:11 AM CDT us Lora Stoner DO LAB - PATHOLOGY/CYTOLOGY ORDERABLES Final Result DERMATOPATHOLOGY LABORATORY [facility] - Department of Dermatology [address] [place] [address], [facility] [phone] documented in this encounter Visit Diagnoses Not on filedocumented in this encounter
--- OUTSIDE RECORDS SUMMARY | 2025-01-25 11:40 | XMS_ITS | Clinical Summary ---
Author Organization [facility] Address [address] [place] [address] Care Team Providers Care Property Damage Claims Adjustor Name Role Phone Fanny Lara Primary Care Pr ovider Allergies Active Allergy Reactions Criticality Noted Date Comments Metformin Dizziness Low 03/09/2023 Chilling feeling, hair loss, word-finding difficulty Medications fluticasone (FLONASE) 50 mcg/actuation nasal spray Administer 1 spray into each nostril daily as needed for rhinitis or allergies Active acyclovir (ZOVIRAX) 200 mg capsule Take 1 capsule (200 mg total) by mouth as needed (HSV outbreak) 9 Active econazole 1 % cream as needed 6 9 Active omeprazole (PriLOSEC) 20 mg capsule daily 0 Active multivitamin capsule Take 1 capsule by mouth daily Active MAGNESIUM CHLORIDE ORAL Take by mouth daily Active ciclopirox (PENLAC) 8 % solution ciclopirox 8 % topical solution APPLY TO NAILS ONCE PRN Active levothyroxine (SYNTHROID) 75 mcg tablet Take 1 tablet (75 mcg total) by 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 before breakfast Active cholecalciferol (VITAMIN D-3) 4,000 unit capsule Take 1 capsule (4,000 Units total) by mouth daily Active ketoconazole (NIZORAL) 2 % cream APPLY CREAM TOPICALLY TO FEET TWICE DAILY NEEDED FOR 3 WEEKS 2 Active liothyronine (CYTOMEL) 5 mcg tablet TAKE 1 TABLET BY MOUTH DAILY AT NOON 5 Active omega-3s/dha/ep a/fish oil/D3 (VITAMIN-D + OMEGA-3 ORAL) Active Active Problems Problem Noted Date Diagnosed Date LUC (generalized anxiety disorder) 03/08/2023 Localized swelling of right lower leg 06/15/2022 Contusion, knee and lower leg 06/10/2022 Abnormal finding of blood chemistry, unspecified 12/08/2021 Dizziness 12/08/2021 Assessment & Plan (12/08/2021 12:30 PM CDT): F/U PCP. Alert PCP/consider ER for further acute episodes. Pain of left lower extremity 05/07/2021 Pain in joint of left shoulder 05/07/2021 Blood glucose abnormal 05/07/2021 Constipation 04/21/2021 Assessment & Plan (04/21/2021 8:47 AM TIMEKEEPING SUPERVISOR): Recommended daily fiber supplement containing inulin or wheat dextrin. Discussed possible benefits w/r/t gut microbiome and weight. Miralax prn. Weight loss counseling, encounter for 10/16/2020 Assessment & Plan (12/08/2021 12:24 PM CDT): Reviewed calorie restriction based on BMR as previously detailed. Reviewed recommendation/goal of >/= 150 minutes/week moderate-intensity aerobic exercise. Asked to keep detailed food diary for at least 1 week and bring to next visit and/or continue tracking on phone. Assessment & Plan (04/21/2021 8:41 AM TIMEKEEPING SUPERVISOR): Reviewed calorie restriction based on BMR as previously detailed. Reviewed recommendation/goal of >/= 150 minutes/week moderate-intensity aerobic exercise. Asked to keep detailed food diary for at least 1 week and bring to next visit and/or continue tracking on phone. Discussed common sources of error in monitoring calories such as not including condiments or beverages. Assessment & Plan (10/18/2020 9:16 AM CDT): Discussed that significant health benefits/risk reduction may be seen with even 5% weight loss. Discussed that weight loss will require calorie deficit. Calculated basal metabolic rate and estimated total energy expenditure; discussed 500-1000 kcal/day deficit to lose 1-2 lb per week. Asked to keep detailed food diary for at least 1 week and bring to next visit. Discussed relatively small, although significant, role of exercise in weight loss; greater importance in weight maintenance as shown in Look Ahead study and National Weight Control Registry. Discussed recommendation/goal for 150 minutes per week moderate-intensity aerobic exercise. Hx of bariatric surgery 10/16/2020 Assessment & Plan (12/08/2021 12:28 PM CDT): Routine labs to evaluate for vitamin deficiencies in setting of intestinal malabsorption. Assessment & Plan (10/18/2020 9:18 AM CDT): Reviewed most recent surgery notes/labs. Obstructive sleep apnea syndrome 08/23/2018 Assessment & Plan (10/16/2020 10:56 AM CDT): Discussed comorbidities associated with sleep apnea, including effects on weight, and stressed importance of adequate treatment if present. Continue CPAP. Class 3 severe obesity due t o excess calories with serious comorbidity in adult 07/21/2018 Overview (12/08/2021): S/P sleeve gastrectomy 2018 Assessment & Plan (12/08/2021 12:27 PM CDT): Obesity is improving.. Plan: Diet interventions: as noted.., Regular aerobic exercise program discussed. and Medication as prescribed. Assessment & Plan (04/21/2021 8:45 AM TIMEKEEPING SUPERVISOR): Obesity is unchanged.2 Diet interventions: as noted. Regular aerobic exercise program discussed. Pharmacotherapy as ordered. Assessment & Plan (10/18/2020 9:22 AM CDT): Obesity is unchanged. General weight loss/lifestyle modification strategies discussed (elicit support from others; identify saboteurs; non-food rewards, etc). Diet interventions: as noted. Informal exercise measures discussed, e.g. taking stairs instead of elevator. Regular aerobic exercise program discussed. More detailed recommendations pending review of labs, food record. Hyperlipemia 06/09/2018 Assessment & Plan (10/18/2020 9:19 AM CDT): Discussed role of diet, exercise and weight loss in improving lipid profile. Essential hypertension 06/09/2018 Assessment & Plan (10/18/2020 9:19 AM CDT): Reviewed role of diet, exercise, weight loss in controlling blood pressure. Recommended low sodium/DASH diet. Continue current medications. Immature cataract 02/05/2017 Nocturia 02/05/2017 Borderline diabetes mellitus 02/05/2017 Assessment & Plan (12/08/2021 12:26 PM CDT): Labs. Continue low-carb (<150 g/day), low-glycemic diet. Continue metformin. GLP-1 RA remains an option. Assessment & Plan (04/21/2021 8:46 AM TIMEKEEPING SUPERVISOR): She will forward recent lab results. Continue low-carb (<150 g/day), low- glycemic diet. Continue metformin -- will titrate up to 1000 mg BID. Discussed possible use of semaglutide -- she wishes to defer at this time. Assessment & Plan (10/18/2020 9:17 AM CDT): She will forward recent labs. Discussed insulin resistance including effect on weight and risk for progression to diabetes. Recommended low-carb, low-glycemic diet; choose whole grains and avoid more highly processed carbohydrates. Discussed potential benefits of this w/r/t gut microbiome. Referred to ADA and [employer] websites for additional information on topics including glycemic index/carbohydrate choices, protein sources. Discussed starting metformin pending review. Hypothyroidism Assessment & Plan (10/18/2020 9:20 AM CDT): She will forward recent labs. Resolved Problems Problem Noted Date Diagnosed Date Resolved Date Morbid obesity 06/09/2018 08/17/2018 Immunizations Immunization Administration Dates Next Due Influenza, Trivalent, Preservative Free, Intramu scular 11/20/2016 Pfizer SARS-CoV-2 Monovalent Vaccination (12+ Yrs) PURPLE 05/20/2020,04/27/2020 Surgical History Surgery Date Site/Laterality Comments BREAST BIOPSY SECTION 1983 COLONOSCOPY ESOPHAGOSCOPY / EGD COLONOSCOPY SECTION 1980 1983 BARIATRIC SURGERY 03/22/2018 - 03/21/2019 Medical History Medical History Date Comments Hypertension Other specified counseling Patie nt Education - Diabetic Foot Care - Smiley Quinn once a year (Added by Conv) Asymptomatic postmenopausal status Morbid obesity (HCC) Sleep apnea Thyroid disease Low back pain Pre-diabetes Hypothyroidism Cataract Family History Medical History Relation Name Comments Heart attack Father Owen Family history of heart attack - (Added by Conv) Heart disease Father Owen Heart Disease - (Added by Conv) Hypertension Father Owen Hypertension - (Added by Conv) Obesity Father Owen Breast cancer Mother Agnieszka Cancer, breast ; Cancer Mother Agnieszka Cancer - (Added by Conv) Diabetes Mother Agnieszka Diabetes type II Mother Agnieszka Type 2 Diab etes Mellitus - (Added by Conv) Hypertension Mother Agnieszka Other Other No family histo ry of Ovarian cancer; Relation Name Status Comments Father Owen Mother Agnieszka Alive Other Social History Tobacco Use Types Packs/Day Years Used Date Smoking Tobacco: Never Passive Smoke Exposure: Never Smokeless Tobacco: Never Tobacco Cessation:Counseling Given: Not Answered Alcohol Use Standard Drinks/Week Comments Yes 0 (1 standard drink = 0.6 oz pur e alcohol) AUDIT-C Answer Date Recorded Q1: How often do you have a drink containing alc ohol? Monthly or less 08/22/2024 Q2: How many drinks containi ng alcohol do you have on a typical day when you are drinking? 1 or 2 08/22/2024 Q3: How often do you have si x or more drinks on one occasion? Never 08/22/2024 Comments No Sex and Gender Information Value Date Recorded Sex Assigned at Not on file Legal Sex Female 11:10 AM TIMEKEEPING SUPERVISOR Gender Identity Female 07/20/2023 6:38 PM CDT Sexual Orientation Straight 07/26/2018 9: 47 AM CDT Last Filed Vital Signs Vital Sign Reading Time Taken Comments Blood Pressure 153/87 08/22/2024 9:29 AM CDT Pulse 68 08/22/2024 9:29 AM CDT Temperature 36.6 C (97.9 F) 08/22/2024 9:29 AM CDT Respiratory Rate 18 11/27/2018 12:1 0 PM CDT Oxygen Saturation 98% 08/22/2024 9:29 AM CDT Inhaled Oxygen Concentration - - Weight 105.4 kg (232 lb 6.4 oz) 08/22/2024 9:29 AM CDT Height 166.4 cm (5' 5.5) 08/22/2024 9:29 AM CDT Body Mass Index 38.09 08/22/2024 9:29 AM CDT Plan of Treatment Health Maintenance Due Date Last Done Comments Colon Cancer Screening-Colonoscopy 1950 Depression Screening 1950 Fall Risk Assessment 1950 Hepatitis C Screening 1950 Osteoporosis Screening-Bone Density Scan 1952 Hepatitis B Screening 1970 Zoster Vaccine (1 of 2) 2002 Well Visit 65+ 2017 Breast Cancer Screening-Mammogram 06/25/2021 021 Covid-19 Vaccine (2 6 season) 2024 06/20/2021, 01/04/2021, 12/20/2020, Additional history exists Influenza Vaccine (#1) 2024 9, 02/21/2018, 11/20/2016 DTaP/Tdap/Td Vaccine (2 - Td or Tdap) 10/21/2028 10/21/2018 Pneumococcal vaccine 65+ Completed 02/03/2021, 01/20 Goals Goal Patient Goal Type Associated Problems Recent Progress Patient-Stated? Author 1W: During process group, patient to report observed changes in mood and emotions since coming off her medications and reflect on contributing factors. Care Plan 1. Family/Interperso nal Relationship Problems: No Marielos Ceron, [facility] Note: Extended Short Term Goal 1W: During process group, patient to report observed changes in mood and emotions since coming off her medications and reflect on contributing factors. Patient goal extended. Patient has shown growth towards this goal in reporting decreased side effects of emotional blunting since coming off of her medications and demonstrating ability to cope with anxiety and stress without medication assistance. Patient may benefit from additional focus towards this goal as she navigates potential holiday stress and seasonal mood changes and as she approaches planned discharge from program. 1X: During skills group, patient to identify most effective coping strategies to utilize to manage anxiety upon discharge. Care Plan 1. Family/Interperso nal Relationship Problems: No Marielos Ceron LPC Note: Resolved Short Term Goal 1T: During skills group, patient to explore and identify 3-5 coping skills/strategies towards building self-confidence Patient goal resolved. Patient has shown growth towards this goal through exploring her own values and personal strengths and how she can change her behaviors to better align with these towards improved self-esteem, self-confidence, and life satisfaction. Patient may benefit from shift in focus back to clarifying most effective coping strategies for managing anxiety as she approaches discharge planned for after the holidays. New Short Term Goal 1X: During skills group, patient to identify most effective coping strategies to utilize to manage anxiety upon discharge. 1Y: During cognitive group, patient to identify thoughts, feelings, and behaviors experienced in relation to symptom of helplessness. Care Plan 1. Family/Interperso nal Relationship Problems: No Marielos Ceron LPC Note: Resolved Short Term Goal 1U: During cognitive group, patient to demonstrate ability to restructure her cognitions towards improved acceptance of self, others, and present life circumstances as she adapts to stressors Patient goal resolved. Patient has shown growth towards this goal in demonstrating on multiple occasions ability to shift her cognitions away from worries about other people towards what she can control in a situation. Patient may benefit from shift in focus to continued reporting of symptom of helplessness and increasing insight into what thoughts, feelings, and behaviors are contributing to this. New Short Term Goal 1Y: During cognitive group, patient to identify thoughts, feelings, and behaviors experienced in relation to symptom of helplessness. 1Z: Patient to reflect on and identify areas of progress made during her time in the program to improve self-confidence as she approaches termination. Care Plan 1. Family/Interperso nal Relationship Problems: No Marielos Ceron LPC Note: Resolved Short Term Goal 1V: Patient to report recent efforts at setting and maintaining boundaries towards self-preservation and self-care Patient goal resolved. Patient has shown growth towards this goal in demonstrating an increased ability to focus on herself and away from others' lifestyle choices and decisions that she cannot control, especially in regards to her sister and some other family members. Patient may benefit from shift in focus to new goal aimed at reflection of the progress she has made and what she has learned from/gained out of [facility] program as she approaches discharge to increase confidence in navigating life stressors after termination of therapy. New Short Term Goal 1Z: Patient to reflect on and identify areas of progress made during her time in the program to improve self-confidence as she approaches termination. Medical Devices Implanted Type Area Medical Review Specialist Device Identifier Shelf Expiration Date Model / Serial / Lot Sage Implanted:Qty: 6 on 11/24/2018 by Abi Miranda MD at [facility] 07/19/2021 / / [id number] Description:Not an implant s ee supply screen for charge Additional Health Concerns Active Problems Noted Date [...] about the possibility of conflict with her [id number], who have recently become more involved in [...] through learning new coping skills to utilize. Insurance MEDICARE [facility] MEDICARE [employer] [place] MEDICARE [employer] [place] Advance Directives For more information, please contact: [phone] * Full Code (Latest Code Status on File) Date Activated Date Inactivated Comments 11/24/2018 1:52 PM 11/27/2018 6:41 PM * Full Code Date Activated Date Inactivated Comments 08/17/2018 3:05 PM 08/17/2018 7:31 PM Care Teams Property Damage Claims Adjustor Relationship Specialty Start Date End Date Fanny Lara PA PCP - General Physician Manager Merchandising 10/20/17
--- OUTSIDE RECORDS SUMMARY | 2025-01-25 11:40 | XMS_ITS | Encounter Summary ---
Author Organization [facility] Address [address] 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
--- OUTSIDE RECORDS SUMMARY | 2025-01-25 11:40 | XMS_ITS | Encounter Summary ---
Author Organization [facility] Address [address] [place] [address] Care Team Providers Care Food Crops Farm Hand Name Role Phone Unavailable Primary Care Provider Unavailabl e Encounter Details Date Type Department Care Team (Late st Contact Info) Description 09/07/2022 Lab Requisition [facility] Lab [address] [place] [address] Lora Stoner DO [address] [facility] [address] [place] [address] Social History Tobacco Use Types Packs/Day Years Used Date Smoking Tobacco: Never Assessed Comments Unknown Sex and Gender Information Value Date Recorded Sex Assigned at Not on file Legal Sex Female 11:36 AM CUT OFF 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 Gender Identity Not on file Sexual Orientation Not on file documented as of this encounter Plan of Treatment Not on file documented as of this encounter Procedures Procedure Name Priority Date/Time Associated Diagnosis Comments DERMATOPATHOLOGY Routine 09/07/2022 1:49 PM CDT documented in this encounter Results * DERMATOPATHOLOGY (09/07/2022 1:49 PM CDT) Case Report Dermatopathology Report Case: [id number] Authorizing Provider: Lora Stoner DO Collected: 09/07/2022 01:49 PM Ordering Location: [facility] Lab Received: 09/08/2022 12:42 PM Pathologist: Alix Narayan MD Specimen: Skin, left post crown 3 4:07 PM CDT DERMATOPATHOLOGY LABORATORY Final Diagnosis Specimen A. SKIN, left post crown: BASAL CELL CARCINOMA, NODULAR TYPE (C44.519) 3 4:07 PM CDT DERMATOPATHOLOGY LABORATORY at 1607 CDT Clinical History R/O BCC;NONHEALING 3 4:07 PM CDT DERMATOPATHOLOGY LABORATORY Gross Description Specimen A: Received is one formalin filled container labeled with the patient's name and designated left post crown. The specimen consists of a shave biopsy measuring 5x3x1 mm. Jar 0. 3 4:07 PM CDT DERMATOPATHOLOGY LABORATORY Microscopic Description Specimen A. SKIN, left post crown: Within the dermis there are aggregates of basaloid cells with a high nuclear to cytoplasmic ratio and peripheral palisading. 3 4:07 PM CDT DERMATOPATHOLOGY LABORATORY Disclaimer An external and internal positive and negative controls are appropriate for the histochemical, immunohistochemical and immunofluorescence stain(s) in this case (if any), except where stated explicitly. The performance characteristics of the stain(s) cited in this report were developed and its performance characteristic determined by the Dermatopathology Laboratory at [facility], directed by Dr. Jarvis Hogan. These tests need not be, and therefore are not, approved by the [place] Food and Drug Administration. The tests are used for clinical purposes. Billing Codes Specimen Charges Stain Charges 82910 1 3 4:07 PM CDT DERMATOPATHOLOGY LABORATORY Embedded Images 3 4:07 PM CDT DERMATOPATHOLOGY LABORATORY Pathology/Cytolo gy TISSUE SPECIMEN FROM SKIN / Unknown 09/07/2022 1:49 PM CDT 09/08/2022 12:42 PM CDT us Lora Stoner DO LAB - PATHOLOGY/CYTOLOGY ORDERABLES Final Result DERMATOPATHOLOGY LABORATORY [facility] - Department of Dermatology [address] [place] [address], [facility] [phone] documented in this encounter Visit Diagnoses Not on filedocumented in this encounter
--- OUTSIDE RECORDS SUMMARY | 2025-01-25 11:40 | XMS_ITS | Clinical Summary ---
Author Organization [facility] Address [address] [place] [address] Care Team Providers Care Precast Worker Name Role Phone Unavailable Primary Care Provider Unavailabl e Source Comments [facility],non-owned Affiliates and Associated Physician Practices is amultiple site organization consisting of ambulatory clinics and hospital sitesin [place], [place] and [place]. This disclosure is being madepursuant to the Care Everywhere program and may not contain all information available regarding this patient. Last updated 17.[facility] Social History Tobacco Use Types Packs/Day Years Used Date Smoking Tobacco: Never Assessed Comments Unknown Sex and Gender Information Value Date Recorded Sex Assigned at Not on file Legal Sex Female 11:36 AM PET AMBASSADOR Gender Identity Not on file Sexual Orientation Not on file Plan of Treatment Health Maintenance Due Date Last Done Comments BONE DENSITY TESTING 1950 COLOGUARD (AGES 45-75) - COL ON CA SCREENING 1952 COLON MONITORING 1952 COLONOSCOPY - COLON CA SCREENING 1952 CT COLONOGRAPHY - COLON CA SCREENING 1952 Colorectal Cancer Screening 1952 FIT - COLON CA SCREENING 1952 FLEX SIG - COLON CA SCREENING 1952 LIPID TESTING 1952 MAMMOGRAM 1950 MEDICARE AWV 12 MONTHS 1952 HEPATITIS C SCREENING 10/06/1970 DTAP/TDAP/TD VACCINES (1 - Tdap) 10/11/1971 PNEUMOCOCCAL VACCINE 50+ (1 of 1 - PCV) 2002 ZOSTER VACCINE (1 of 2) 2002 DEPRESSION SCREENING 03/22/2024 COVID-19 VACCINE ( - 2023-2 5 season) 2024 INFLUENZA VACCINE (#1) 2024 Respiratory Syncytial Virus (RSV) Vaccine Pt: or over 60 yrs (1 - 1-dose 75+ series) 10/11/2027 HEPATITIS B VACCINE Aged Out No longe r eligible based on patient's age to complete this topic HIB VACCINE Aged Out No longer eligi ble based on patient's age to complete this topic HPV VACCINE Aged Out No longer eligi ble based on patient's age to complete this topic MENINGOCOCCAL (Group B) VACC INE SHARED DECISION-MAKING Aged Out No longer eligibl e based on patient's age to complete this topic MENINGOCOCCAL GROUPS A/C/Y/W VACCINE Aged Out No longer eligible b ased on patient's age to complete this topic Insurance MEDICARE [facility]
--- OUTSIDE RECORDS SUMMARY | 2025-01-25 11:40 | XMS_ITS | Encounter Summary ---
Author Organization [facility] Address [address] [facility] [address] Care Team Providers Care Photographer Scientific Name Role Phone Unavailable Primary Care Provider Unavailabl e Encounter Details Date Type Department Care Team (Late st Contact Info) Description 10/11/2023 Lab Requisition [facility] - DermPath Lab [address] 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 Physician [facility] - Received: 10/12/2023 10:52 AM DermPath Lab Pathologist: Paty Perera MD Specimen: Skin, left posterior ankle 4 3:42 PM CDT DERMATOPATHOLOGY LABORATORY Final Diagnosis Specimen A. SKIN, left posterior ankle: BASAL CELL CARCINOMA, SUPERFICIAL MULTIFOCAL (C44.719) 4 3:42 PM CDT DERMATOPATHOLOGY LABORATORY at 1542 CDT Clinical History R/O SCC 4 3:42 PM CDT DERMATOPATHOLOGY LABORATORY Gross Description Specimen A: Received is one formalin filled container labeled with the patient's name and designated left posterior ankle. The specimen consists of a shave biopsy measuring 9x5x1 mm. Jar 0. 4 3:42 PM CDT DERMATOPATHOLOGY LABORATORY Microscopic Description Specimen A. SKIN, left posterior ankle: Attached to the undersurface of the epidermis, there are small aggregates of basaloid cells with a high nuclear to cytoplasmic ratio and peripheral palisading. 4 3:42 PM CDT DERMATOPATHOLOGY LABORATORY Disclaimer An external and internal positive and negative controls are appropriate for the histochemical, immunohistochemical and immunofluorescence stain(s) in this case (if any), except where stated explicitly. The performance characteristics of the stain(s) cited in this report were developed and its performance characteristic determined by the Dermatopathology Laboratory at [facility], directed by Dr. Jarvis Hogan. These tests need not be, and therefore are not, approved by the [place] Food and Drug Administration. The tests are used for clinical purposes. Billing Codes Specimen Charges Stain Charges 60810 1 4 3:42 PM CDT DERMATOPATHOLOGY LABORATORY Embedded Images 4 3:42 PM CDT DERMATOPATHOLOGY LABORATORY Pathology/Cytolo gy TISSUE SPECIMEN FROM SKIN / Unknown 10/11/2023 9:35 AM CDT 10/12/2023 10:52 AM CDT Yesica Mondragon MD LAB - PATHOLOGY/CYTOLOGY OR DERABLES Final Result DERMATOPATHOLOGY LABORATORY [facility] - Department of Dermatology [address] [place] [address], [facility] [phone] documented in this encounter Visit Diagnoses Not on filedocumented in this encounter
--- OUTSIDE RECORDS SUMMARY | 2025-01-25 11:40 | XMS_ITS | Encounter Summary ---
Author Organization [facility] Address [address] [facility] [place] [address] Care Team Providers Care Paperhanger And Painter Name Role Phone Unavailable Primary Care Provider Unavailabl e Encounter Details Date Type Department Care Team (Late st Contact Info) Description 02/25/2018 Lab Requisition [facility] Care DermPath Lab [address] [facility] [place] [id number] Yesica Mondragon MD [address] [facility] [address] [place] [address] Social History Tobacco Use Types Packs/Day Years Used Date Smoking Tobacco: Never Assessed Comments Unknown Sex and Gender Information Value Date Recorded Sex Assigned at Not on file 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 Gender Identity Not on file Sexual Orientation Not on file documented as of this encounter Plan of Treatment Not on file documented as of this encounter Procedures Procedure Name Priority Date/Time Associated Diagnosis Comments DERMATOPATH TECHNICAL REPORT Routine 02/24/2018 12:00 AM LEAN SPECIALIST documented in this encounter Results * DERMATOPATH TECHNICAL REPORT (02/24/2018 12:00 AM LEAN SPECIALIST) Case Report Dermatopathology Report Case: [id number] Authorizing Provider: Yesica Mondragon MD Collected: 02/24/2018 12:00 AM Pathologist: Katy Fonseca MD Received: 02/25/2018 08:04 AM Specimens: A) - Skin, left clemente B) - Skin, right breast 12:29 PM LEAN SPECIALIST DERMATOPATHOLOGY LABORATORY Clinical History A: BCC, non-healing. Check margins. B: Nevus, growing. 12:29 PM LEAN SPECIALIST DERMATOPATHOLOGY LABORATORY Gross Description Specimen A: Received is one formalin filled container labeled with the patient's name and designated left clemente. The specimen consists of a shave measuring 8v1d5ic. The margin is inked green. Jar 0. Specimen B: Received is one formalin filled container labeled with the patient's name and designated right breast. The specimen consists of a shave measuring 8i3x5gg, bisected. Jar 0. [facility] Dermatopathology Laboratory performed the technical component only. 8 12:29 PM [facility] DERMATOPATHOLOGY LABORATORY Embedded Images 8 12:29 PM [facility] DERMATOPATHOLOGY LABORATORY DISCLAIMER An external and internal positive and negative controls are appropriate for the histochemical, immunohistochemical and immunofluorescence stain(s) in this case (if any), except where stated explicitly. The performance characteristics of the stain(s) cited in this report were developed and its performance characteristic determined by the Dermatopathology Laboratory at [facility]. These tests need not be, and therefore are not, approved by the [place] Food and Drug Administration. The tests are used for clinical purposes. 8 12:29 PM [facility] DERMATOPATHOLOGY LABORATORY at 1229 LEAN SPECIALIST Pathology/Cytology TISSUE SPECIMEN FROM SKIN / Unknown 02/24/2018 02/25/2018 8:04 AM LEAN SPECIALIST Miscellaneous samples (specimen) TISSUE SPECIMEN FROM SKIN / Unknown 02/24/2018 02/25/2018 8:04 AM LEAN SPECIALIST Yesica Mondragon MD LAB - PATHOLOGY/CYTOLOGY OR DERABLES Final Result DERMATOPATHOLOGY LABORATORY [facility] - Department of Dermatology [address] [place] [address], [address] [place] [address], [facility] [phone] documented in this encounter Visit Diagnoses Not on filedocumented in this encounter
--- OUTSIDE RECORDS SUMMARY | 2025-01-25 11:41 | XMS_ITS | Clinical Summary ---
Author Organization [facility] Address [address] [place] [id number] Care Team Providers Care Embedder Name Role Phone Fanny Lara Primary Care Provider [phone] Allergies Active Allergy Reactions Criticality Noted Date Comments Metformin Dizziness 10/11/2023 Medications levothyroxine (SYNTHROID) 25 MCG tablet Take 3 tablets (75 mcg total) by mouth every morning. Active losartan (COZAAR) 25 MG tablet Take 1 tablet (25 mg total) by mouth daily. Active omeprazole (PRILOSEC) 20 MG capsule Take 1 capsule (20 mg total) by mouth daily. Active Semaglutide (OZEMPIC, 0.25 OR 0.5 MG/DOSE, SC) Inject 0.25 mg into the skin once a week. Active Vitamin D3 (VITAMIN D) 50 mcg tablet Take 1 tablet (50 mcg total) by mouth daily. Active escitalopram (LEXAPRO) 10 MG tablet Take 1 tablet (10 mg total) by mouth daily. Active mupirocin (BACTROBAN) 2 % ointment APPLY TO WOUND TWICE DAILY 11/03/2023 Active liothyronine (CYTOMEL) 5 MCG Tab Take 1 tablet (5 mcg total) by mouth daily. 12/16/2023 Active acyclovir (ZOVIRAX) 200 mg capsule Take 1 capsule (200 mg total) by mouth 2 (two) times daily as needed. Active multivitamin (THERA) tablet Take 1 tablet by mouth daily. Active Active Problems Problem Noted Date Diagnosed Date History of adenomatous polyp of colon 10/11/2023 Resolved Problems Problem Noted Date Diagnosed Date Resolved Date Screening for colon cancer 10/11/2023 0 10/18/2023 Screening for colon cancer 10/11/2023 1 Screening for colon cancer 10/11/2023 1 Family History Medical History Relation Comments Coronary artery disease Father Breast Cancer Mother Pancreatic cancer Paternal Uncle Ulcerative Colitis Sister Relation Status Comments Father Mother Paternal Uncle Alive Sister Social History Tobacco Use Types Packs/Day Years Used Date Smoking Tobacco: Never Passive Smoke Exposure: Never Smokeless Tobacco: Never Tobacco Cessation:Counseling Given: No Alcohol Use Standard Drinks/Week Comments Not Currently 0 (1 standard drink = 0.6 oz pur e alcohol) PHQ-2 Answer Date Recorded Patient Health Questionnaire-2 Score 0 10/11/2023 Comments No Sex and Gender Information Value Date Recorded Sex Assigned at Not on file Legal Sex Female 10:16 AM CDT Gender Identity Not on file Sexual Orientation Not on file Last Filed Vital Signs Vital Sign Reading Time Taken Comments Blood Pressure 115/58 01/13/2024 11:35 AM CDT Pulse 61 01/13/2024 11:19 AM CDT Temperature 36.2 C (97.1 F) 01/13/2024 11:19 AM CDT Respiratory Rate 18 01/13/2024 11:23 AM CDT Oxygen Saturation 97% 01/13/2024 11:35 AM CDT Inhaled Oxygen Concentration - - Weight 102.1 kg (225 lb) 12/30/2023 10:25 AM CDT Height 166.4 cm (5' 5.5) 12/30/2023 10:25 AM CD T Body Mass Index 36.87 12/30/2023 10:25 AM CDT Plan of Treatment Health Maintenance Due Date Last Done Comments Hepatitis C 1970 Mammogram Screening 1992 Zoster Vaccines (1 of 2) 2002 Annual Medicare Wellness Visit 2017 Dexa Scan (General) 2017 PHQ-2 (Physician [place]) 03/22/2024 10/11/2023 COVID-19 Vaccine ( season) 2024 01/20/2023, 02/02/2022, 12/02/2021, Additional history exists Influenza Adult (#1) 2024 01/26/2019, 02/21/2018, 11/20/2016 RSV Immunization or 60+ Years (1 - 1-dose 75+ series) 10/11/2027 DTaP, Tdap and Td Vaccines (2 - Td or Tdap) 10/21/2028 10/21/2018 Colorectal Cancer Screening Colonoscopy (10 Years) 01/12/2034 01/13/2024, 01/13/2024 Pneumococcal Vaccine: 50+ Years Completed 02/03/2021, 02/02/2020 Hepatitis A Vaccines Aged Out No long er eligible based on patient's age to complete this topic Meningococcal B Vaccine Aged Out No l onger eligible based on patient's age to complete this topic Meningococcal Vaccine Aged Out No aristeo maxim eligible based on patient's age to complete this topic RSV Immunizations Under 20 Months Aged Out No longer eligible based on patient's age to complete this topic Procedures Procedure Name Priority Date/Time Associated Diagnosis Comments COLONOSCOPY Routine 01/13/2024 10:15 AM CDT from Last 3 Months or Most Recently Relevant to Health Maintenance Insurance [facility] MEDICARE Care Teams Embedder Relationship Specialty Start Date End Date Fanny Lara PA [address] [place] [id number] PCP - General PHYSICIAN COMMERCIAL FOOD INSTRUCTOR 09/28/23
== END 2025-01-24 13:05 | disposition home or self-care (01) ==
LOC: CHSIMG 13:07
PROVIDERS: PCP Physician Assistant; Visit Provider Physician Assistant
DX: Z12.31 Encounter for screening mammogram for malignant neoplasm of breast (principal)
CPT/HCPCS: 77063; 77067